=== PATIENT | male | born 1940 | race Hispanic/Latino ===

== ENCOUNTER 2016-12-19 12:23 | Emergency (ER) | payer MEDICARE, BC ==
[2016-12-19 12:23] VITALS: BMI 21.7
[2016-12-19 12:46] VITALS: RESP 18
--- NOTE | 2016-12-19 13:04 | ED PDOC ---
Arrival/HPI - General Historian: Patient - General Chief Complaint: Back Pain Time Seen by Provider: 12/19/16 12:30 - History of Present Illness Narrative History of Present Illness (Text): 12/19/16 12:56 76yo male with PMhx of hypertension, hypercholestrol present with complaint of right sided lower back pain that radiates posteriorly to his foot. states pain started over a week ago and became increasingly worse. Pain is crampy and usually with ambulation. States he saw a Chiropractor and was told he have a sciatica. States xray was negative and he was told to f/u in ED. 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 Denies saddle anesthesia, focal weakness, LE edema, trauma, chest pain, SOB, urinary/fecal incontinence. (Ayla Perez A) Past Medical History - Provider Review Nursing Documentation Reviewed: Yes - Infectious Disease Hx of Infectious Diseases: None - Cardiac Hx Hypertension: Yes - Pulmonary Hx Asthma: Yes - Neurological Hx Paralysis: No - HEENT Hx HEENT Disorder: No - Renal Hx Renal Disorder: No - Endocrine/Metabolic Hx Endocrine Disorders: No - Hematological/Oncological Hx Blood Transfusions: No Hx Blood Transfusion Reaction: No - Integumentary Hx Dermatological Disorder: No - Musculoskeletal/Rheumatological Hx Musculoskeletal Disorders: No - Gastrointestinal Hx Gastroesophageal Reflux: Yes - Genitourinary/Gynecological Hx Genitourinary Disorders: No - Psychiatric Hx Substance Use: No - Surgical History Hx Inguinal Hernia Repair: Yes - Anesthesia Hx Anesthesia Reactions: Yes (STATES WITH 2008 COLONOSCOPY-RESP DISTRESS-ICU ADMIT) Hx Malignant Hyperthermia: No - Suicidal Assessment Feels Threatened In Home Enviroment: No Family/Social History - Physician Review Nursing Documentation Reviewed: Yes Family/Social History: Unknown Family HX Smoking Status: Never Smoked Hx Alcohol Use: Yes (WINE DAILY) Hx Substance Use: No Hx Substance Use Treatment: No Allergies/Home Meds Allergies/Adverse Reactions: Allergies No Known Allergies Allergy (Verified 12/19/16 12:46) Home Medications: Home Meds Medication Instructions Recorded Confirmed Atorvastatin [Lipitor] 10 mg PO QAM 04/19/14 11/14/15 Cholecalciferol (Vitamin D3) 5,000 iu PO QAM 04/19/14 11/14/15 [Vitamin D3] Losartan [Cozaar] 50 mg PO QAM 04/19/14 11/14/15 Omeprazole 40 mg PO QAM 11/12/15 11/14/15 Review of Systems - Physician Review All systems were reviewed & negative as marked: Yes - Review of Systems Constitutional: Normal Eyes: Normal ENT: Normal Respiratory: Normal Cardiovascular: Normal Gastrointestinal: Normal Genitourinary Male: Normal Musculoskeletal: Back Pain Skin: Normal Neurological: Normal Endocrine: Normal Hemo/Lymphatic: Normal Psychiatric: Normal Physical Exam Vital Signs Reviewed: Yes Temperature: Afebrile Blood Pressure: Normal Pulse: Regular Respiratory Rate: Normal Appearance: Positive for: Well-Appearing, Non-Toxic, Comfortable Pain Distress: None Mental Status: Positive for: Alert and Oriented X 3 - Systems Exam Head: Present: Atraumatic, Normocephalic Pupils: Present: PERRL Extroacular Muscles: Present: EOMI Conjunctiva: Present: Normal Mouth: Present: Moist Mucous Membranes Neck: Present: Normal Range of Motion Respiratory/Chest: Present: Clear to Auscultation, Good Air Exchange. No: Respiratory Distress, Accessory Muscle Use Cardiovascular: Present: Regular Rate and Rhythm, Normal S1, S2. No: Murmurs Abdomen: Present: Normal Bowel Sounds. No: Tenderness, Distention, Peritoneal Signs Back: No: Midline Tenderness, Paraspinal Tenderness, Pain with Leg Raise Upper Extremity: Present: Normal Inspection. No: Cyanosis, Edema Lower Extremity: Present: Normal Inspection. No: Edema Neurological: Present: GCS=15, CN II-XII Intact, Speech Normal Skin: Present: Warm, Dry, Normal Color. No: Rashes Psychiatric: Present: Alert, Oriented x 3, Normal Insight, Normal Concentration Vital Signs Temp Pulse Resp BP Pulse Ox 12/19/16 14:08 98 F 70 18 131/70 99 12/19/16 12:40 98.1 F 74 18 148/76 98 Medical Decision Making ED Course and Treatment: 12/19/16 13:21 Pt in ED for stated history. He was ambulatory with a normal gait in ED. Neurological intact. PEr US tech - doppler was negative for DVT LS CT pending Pain controlled in ED with Tramadol. 12/19/16 15:[address] IMPRESSION: Asymmetric disc bulge right greater than left at L4-5 with right-sided foraminal stenosis and mild central stenosis Pt continued to ambulate in ED with normal gait. States his pain improved with medication. REsult was DW the pt. Referred to ortho. TRT ED for any new or worsening symptoms. (Chris,Ayla A) I was available for consultation during PA evaluation. The chart was reviewed by me, and I agree with disposition. The documented history was done by the physician capital equipment specialist. The documented physical exam was done by the physician capital equipment specialist. The documented procedures were done by the physician capital equipment specialist. ( Vickey Starr) - RAD Interpretation Radiology Orders: 12/19/16 12:54 LUMBAR SPINE W/O CONTRAST [CT] Stat 12/19/16 12:55 DUPLEX LOWER EXTRM VEIN RIGHT [US] Stat - Medication Orders Current Medication Orders: Discontinued Medications Tramadol HCl (Ultram) 50 mg PO STAT STA Stop: 12/19/16 12:57 Last Admin: 12/19/16 13:10 Dose: 50 MG Disposition/Present on Arrival - Present on Arrival Any Indicators Present on Arrival: No History of DVT/PE: No History of Uncontrolled Diabetes: No Urinary Catheter: No History of Decub. Ulcer: No History Surgical Site Infection Following: None - Disposition Have Diagnosis and Disposition been Completed?: Yes Disposition Time: 14:00 Patient Plan: Discharge - Disposition Diagnosis: Back pain, Sciatica Disposition: HOME/ ROUTINE Condition: STABLE Discharge Instructions (ExitCare): Back Pain (ED), Sciatica (ED) Additional Instructions: Follow up with your doctor/Orthopedist Return to ED ED for any new or worsening Prescriptions: traMADol [Ultram] 50 mg PO TID #10 tab Referrals: Dwayne Morales MD [Primary Care Provider] - Follow up with primary Maulik Herrera III, MD [Medical Doctor] - Follow up with primary
--- NOTE | 2016-12-19 13:55 | CT ---
PROCEDURE: CT Lumbar Spine without contrast HISTORY: back pain COMPARISON: None. TECHNIQUE: Axial computed tomography images were obtained of the lumbar spine without the use of intravenous contrast. Coronal and sagittal reformatted images were created and reviewed. Radiation dose: Total exam DLP = 601 mGy-cm. This CT exam was performed using one or more of the following dose reduction techniques: Automated exposure control, adjustment of the mA and/or kV according to patient size, and/or use of iterative reconstruction technique. FINDINGS: VERTEBRAE: Unremarkable. No fracture. Normal alignment. DISCS/SPINAL CANAL/NEURAL FORAMINA: L1-2: Disc bulge with left-sided osteophyte. Loss of disc height L2-3: Unremarkable. L3-4: Unremarkable. L4-5: There is an asymmetric disc bulge to the right which produces foraminal stenosis. There is also a mild degree of central stenosis. There is disc degeneration with a vacuum disc centrally. There is moderate facet arthropathy L5-S1: Unremarkable. PARASPINAL SOFT TISSUES: Unremarkable. OTHER FINDINGS: None. IMPRESSION: Asymmetric disc bulge right greater than left at L4-5 with right-sided foraminal stenosis and mild central stenosis
[2016-12-19 14:09] VITALS: BP 131/70; PULSE 70; TEMP 98; O2SAT 99
--- NOTE | 2016-12-20 14:22 | US ---
PROCEDURE: Right lower extremity venous US HISTORY: Leg pain and swelling. Evaluate for DVT. PHYSICIAN(S): Ronald Morales M.D. TECHNIQUE: Duplex sonography and color-flow Doppler with graded compression were used to evaluate the deep venous system of the right lower extremity. FINDINGS: The visualized deep venous system of the right lower extremity is sonographically normal and compressible. Normal waveforms and augmentation are seen. There is no sonographic evidence for deep venous thrombosis in the visualized segments of the right lower extremity. IMPRESSION: 1. No sonographic evidence for deep venous thrombosis in the visualized segments of the right lower extremity.
== END 2016-12-19 14:09 | disposition home or self-care (01) ==
LOC: ED 12:23
DX: M54.40 Lumbago with sciatica, unspecified side (principal); I10 Essential (primary) hypertension; E78.00 Pure hypercholesterolemia, unspecified

== ENCOUNTER 2018-10-10 07:32 | Inpatient (IN) | payer MEDICARE, BC ==
[2018-10-10 08:22] LABS: BASO # 0.02 K/mm3 (0.0-2.0); BASO % 0.3 % (0.0-3.0); EOS % 0.4 % (1.5-5.0); HEMOGLOBIN 12.4 g/dL (14.0-18.0); LYMPH # 1.8 (1.2-3.4); LYMPH % 25.8 % (22.0-35.0); MEAN CELL VOLUME 92.5 fl (80.0-105.0); MEAN CORPUSCULAR HEMOGLOBIN 29.9 pg (25.0-35.0); MEAN CORPUSCULAR HGB CONC 32.3 g/dl (31.0-37.0); MEAN PLATELET VOLUME 10.9 fl (7.0-11.0); MONO # 0.7 (0.1-0.6); MONO % 10.3 % (1.0-6.0); RBC 4.15 10^6/uL (3.5-6.1); RED CELL DISTRIBUTION WIDTH 13.4 % (11.5-14.5)
--- NOTE | 2018-10-10 08:28 | ED PDOC ---
Arrival/HPI - General Chief Complaint: Lower Extremity Problem/Injury Time Seen by Provider: 10/10/18 07:39 Historian: Patient - History of Present Illness Narrative History of Present Illness (Text): 10/10/18 08:11 77 year old male, with past medical history of asthma, hypertension, prostrate CA and GERD, presents to the ED accompanied by family for evaluation of progressively worsening bilateral lower extremity swelling since past week. Patient denies any other associated somatic complaints. Patient denies any fevers, chills, headache, dizziness, chest pain, shortness of breath, dyspnea on exertion, cough, abdominal pain, nausea, vomiting, diarrhea, back pain, neck pain, or any other complaints. Patient denies taking his home medications this morning. Patient reports following up with Dr. Sheth for prostrate CA. Time/Duration: < week Symptom Onset: Gradual Symptom Course: Unchanged Activities at Onset: Light Context: Home Past Medical History - Provider Review Nursing Documentation Reviewed: Yes - Infectious Disease Hx of Infectious Diseases: None - Cardiac Hx Hypertension: Yes - Pulmonary Hx Asthma: Yes - Neurological Hx Paralysis: No - HEENT Hx HEENT Disorder: No - Renal Hx Renal Disorder: No - Endocrine/Metabolic Hx Endocrine Disorders: No - Hematological/Oncological Hx Blood Transfusions: No Hx Blood Transfusion Reaction: No - Integumentary Hx Dermatological Disorder: No - Musculoskeletal/Rheumatological Hx Musculoskeletal Disorders: No - Gastrointestinal Hx Gastroesophageal Reflux: Yes - Genitourinary/Gynecological Hx Genitourinary Disorders: No - Psychiatric Hx Emotional Abuse: No Hx Physical Abuse: No Hx Substance Use: No - Surgical History Hx Inguinal Hernia Repair: Yes - Anesthesia Hx Anesthesia: Yes Hx Anesthesia Reactions: Yes (STATES WITH 2008 COLONOSCOPY-RESP DISTRESS-ICU ADMIT) Hx Malignant Hyperthermia: No - Suicidal Assessment Feels Threatened In Home Enviroment: No Family/Social History - Physician Review Nursing Documentation Reviewed: Yes Family/Social History: No Known Family HX Smoking Status: Never Smoked Hx Alcohol Use: Yes (WINE DAILY) Hx Substance Use: No Hx Substance Use Treatment: No Allergies/Home Meds Allergies/Adverse Reactions: Allergies No Known Allergies Allergy (Verified 12/19/16 12:46) Home Medications: Home Meds Medication Instructions Recorded Confirmed Atorvastatin [Lipitor] 10 mg PO QAM 04/19/14 10/10/18 Cholecalciferol (Vitamin D3) 5,000 iu PO QAM 04/19/14 10/10/18 [Vitamin D3] Losartan [Cozaar] 100 mg PO QAM 04/19/14 10/10/18 Fluticasone/Vilanterol 100/25 1 puff INH DAILY 10/10/18 10/10/18 [Breo Ellipta 100-25 MCG INH] Ranitidine HCl [Zantac] 150 mg PO QAM 10/10/18 10/10/18 Tiotropium [place] [Spiriva 2 puff IH DAILY 10/10/18 10/10/18 Respimat] Review of Systems - Physician Review All systems were reviewed & negative as marked: Yes - Review of Systems Constitutional: absent: Fevers Respiratory: absent: SOB, Cough Cardiovascular: Edema (Lower extremity swelling). absent: Chest Pain, [place] Gastrointestinal: absent: Abdominal Pain, Diarrhea, Nausea, Vomiting Genitourinary Male: absent: Dysuria, Urinary Output Changes Musculoskeletal: absent: Back Pain, Neck Pain Skin: absent: Rash Neurological: absent: Headache, Dizziness Physical Exam Vital Signs Reviewed: Yes Vital Signs Temp Pulse Resp BP Pulse Ox 10/10/18 07:32 98.1 F 46 L 20 197/72 H 100 Temperature: Afebrile Blood Pressure: Hypertensive Pulse: Bradycardic Respiratory Rate: Normal Appearance: Positive for: Non-Toxic, Comfortable, Other (thin appearing) Pain Distress: None Mental Status: Positive for: Alert and Oriented X 3 - Systems Exam Head: Present: Atraumatic, Normocephalic Pupils: Present: PERRL Extroacular Muscles: Present: EOMI Conjunctiva: Present: Normal Respiratory/Chest: Present: Clear to Auscultation, Decreased Breath Sounds (Decreased air entry to bilateral lower lung bases). No: Respiratory Distress, Accessory Muscle Use Cardiovascular: Present: Regular Rate and Rhythm, Normal S1, S2. No: Murmurs Abdomen: No: Tenderness, Distention, Peritoneal Signs Back: Present: Normal Inspection Upper Extremity: Present: Normal Inspection. No: Cyanosis, Edema Lower Extremity: Present: Edema (2+ pitting edema bilaterally) Neurological: Present: GCS=15, CN II-XII Intact, Speech Normal Skin: Present: Warm, Dry, Normal Color. No: Rashes Psychiatric: Present: Alert, Oriented x 3, Normal Insight, Normal Concentration Medical Decision Making ED Course and Treatment: 10/10/18 08:11 Impression: 77 year old male presents to the ED for evaluation of bilateral lower extremity swelling. Plan: -- EKG -- Labs -- Chest X-ray -- Urinalysis -- US of LE -- Reassess and disposition Prior Visits: Notes and results from previous visits were reviewed. Progress Notes: 10/10/18 08:11 EKG reviewed, shows junctional rhythm at 42 bpm. 10/10/18 08:50 Chest X-ray reviewed by radiologist, shows borderline left pleural effusion. 10/10/18 10:[address] Mccord, who is aware and agrees with ED management plan, accepts patient under his service. - RAD Interpretation Radiology Orders: 10/10/18 08:11 DUPLEX LOWER EXTRM VEIN BILAT [US] Stat 10/10/18 08:12 CHEST PORTABLE [RAD] Stat Ship'S Cook: Radiologist - EKG Interpretation Interpreted by ED Physician: Yes Type: 12 lead EKG - Scribe Statement The provider has reviewed the documentation as recorded by the Scribe Jj Diaz. All medical record entries made by the Scribe were at my direction and personally dictated by me. I have reviewed the chart and agree that the record accurately reflects my personal performance of the history, physical exam, medical decision making, and the department course for this patient. I have also personally directed, reviewed, and agree with the discharge instructions and disposition. Disposition/Present on Arrival - Present on Arrival Any Indicators Present on Arrival: No History of DVT/PE: No History of Uncontrolled Diabetes: No Urinary Catheter: No History of Decub. Ulcer: No History Surgical Site Infection Following: None - Disposition Have Diagnosis and Disposition been Completed?: Yes Diagnosis: New onset of congestive heart failure Disposition: HOSPITALIZED Disposition Time: 09:40 Condition: FAIR
[2018-10-10 08:33] LABS: ALB/GLOB RATIO 1.3 (1.1-1.8); ALT/SGPT 43 U/L (7-56); AST/SGOT 40 U/L (17-59); BLOOD UREA NITROGEN 23 mg/dL (7-21); CALCIUM 9.3 mg/dL (8.4-10.5); GFR NON-AFRICAN AMERICAN > 60
[2018-10-10 08:45] LABS: B-TYPE NATRIURETIC PEPTIDE 1670 pg/mL (0-450); TROPONIN I 0.02 ng/mL
--- NOTE | 2018-10-10 08:45 | RAD ---
Date of service: 10/10/2018 HISTORY: r/o CHF COMPARISON: Chest radiographs 02/28/2018. FINDINGS: LUNGS: No active pulmonary disease. PLEURA: Borderline left pleural effusion. None is appreciated at the right. No pneumothorax bilaterally. CARDIOVASCULAR: Calcific atherosclerotic changes are seen related to the thoracic aorta. Normal cardiac size. No pulmonary vascular congestion. OSSEOUS STRUCTURES: No significant abnormalities. VISUALIZED UPPER ABDOMEN: Normal. OTHER FINDINGS: None. IMPRESSION: Borderline left pleural effusion. Remainder of the examination appears unremarkable and stable in the interval.
--- NOTE | 2018-10-10 11:43 | CARD ---
APPROVED REPORT Date of service: 10/10/2018 EKG Measurement Heart [id number] <Conclusion> Junctional bradycardia Inferior infarct, age undetermined Marked ST abnormality, possible anterior subendocardial injury Somatic Tremors.
[2018-10-10 12:51] LABS: PH,URINE 6.5 (4.7-8.0); URINE BILIRUBIN NEGATIVE (NEGATIVE); URINE BLOOD NEGATIVE (NEGATIVE); URINE GLUCOSE (UA) NEGATIVE (NEGATIVE); URINE LEUKOCYTE ESTERASE NEGATIVE Leu/uL (NEGATIVE); URINE PROTEIN NEGATIVE mg/dL (<30 mg/dL); URINE UROBILINOGEN 0.2 E.U./dL (<1 E.U./dL)
[2018-10-10 12:52] LABS: URINE APPEARANCE CLEAR (CLEAR); URINE COLOR YELLOW (YELLOW)
--- NOTE | 2018-10-10 13:15 | CON ---
DATE: 10/10/2018 CARDIOLOGY CONSULTATION HISTORY: The patient is a 77-year-old male with a history of prostate CA who presents with pedal edema. PAST MEDICAL HISTORY: The patient's past medical history includes hypertension as well as hypercholesterolemia. He denies previous cardiac history. Denies diabetes mellitus. SOCIAL HISTORY: The patient is a former smoker, stopped 40 years ago. REVIEW OF SYSTEMS: A 14-point review of systems was reviewed in detail. No dyspnea noted. Positive edema in the lower extremities. No angina. No dizziness. No loss of consciousness. Negative history of peptic ulcer disease. No epigastric discomfort. PHYSICAL EXAMINATION: VITAL SIGNS: Blood pressure is 197/72, the heart rates in the 40s, appears to be sinus bradycardia. NECK: Negative JVD. LUNGS: Without rales. HEART: Reveals S1, S2. EXTREMITIES: 1+ edema. LABORATORY DATA: EKG shows poor baseline tracing with bradycardia and narrow complex noted. Hemoglobin is 12.4. Chemistries, BUN and creatinine are unremarkable. Troponin is negative. ProBNP is 1670. IMPRESSION: 1. Bradycardia which appeared to be sinus rhythm. 2. Mild right-sided congestive heart failure. 3. Hypertension. 4. Hypercholesterolemia. 5. History of prostate cancer. Given these findings, we will need to monitor the patient's heart rate on telemetry. Lasix will be ordered. Echocardiogram to evaluate his LV function and to rule out pulmonary hypertension would be appropriate. Ronald España MD
[2018-10-10 14:56] VITALS: BMI 23.0
[2018-10-10] MEDS ORDERED: Influenza Vaccine 60 mcg/0.5 mL SYR (4YR UP) IM ONE (14:57)
[2018-10-10] MEDS ORDERED: Pneumococcal 23-Valent Vaccine IM ONE (14:57)
--- NOTE | 2018-10-10 15:15 | CARD ---
APPROVED REPORT Date of service: 10/10/2018 EXAM: Two-dimensional and M-mode echocardiogram with Doppler and color Doppler. INDICATION Congestive Heart Failure 2D DIMENSIONS Left Atrium (2D)3.9 (1.6-4.0cm)IVSd1.3 (0.7-1.1cm) LVDd4.5 (3.9-5.9cm)PWd1.1 (0.7-1.1cm) LVDs3.2 (2.5-4.0cm)FS (%) 28.3 % LVEF (%)54.7 (>50%) M-Mode DIMENSIONS Aortic Root3.40 (2.2-3.7cm)Aortic Cusp Exc.1.70 (1.5-2.0cm) Aortic Valve AoV Peak Xftoiguf349.0cm/Yasmin Peak GR.11mmHg Mitral Valve E/A ratio0.0 TDI E/Lateral E'0.0E/Medial E'0.0 Tricuspid Valve TR Peak [id number] [id number] Peak Gr.46mmHg [id number] LEFT VENTRICLE The left ventricle is normal size. There is mild concentric left ventricular hypertrophy. The left ventricular function is normal. The left ventricular ejection fraction is within the normal range. There is normal LV segmental wall motion. No left ventricle thrombus noted on this study. RIGHT VENTRICLE The right ventricle is borderline dilated. There is normal right ventricular wall thickness. The right ventricular systolic function is normal. ATRIA The left atrium is borderline dilated. The right atrium is mildly dilated. AORTIC VALVE The aortic valve is severely thickened. There is mild aortic regurgitation. There is no aortic valvular stenosis. MITRAL VALVE The mitral valve is moderately thickened. Mitral regurgitation is moderate to severe. There is no mitral valve stenosis. TRICUSPID VALVE There is moderate tricuspid regurgitation. There is moderate to severe pulmonary hypertension. PULMONIC VALVE There is mild pulmonic valvular regurgitation. GREAT VESSELS The aortic root is normal in size. PERICARDIAL EFFUSION There is no pericardial effusion. <Conclusion> There is mild concentric left ventricular hypertrophy. The left ventricular function is normal. The left ventricular ejection fraction is within the normal range. There is normal LV segmental wall motion. There is mild aortic regurgitation. Mitral regurgitation is moderate to severe. There is moderate tricuspid regurgitation. There is moderate to severe pulmonary hypertension. There is mild pulmonic valvular regurgitation.
--- NOTE | 2018-10-10 20:17 | US ---
HISTORY: Leg pain and swelling. Evaluate for DVT PHYSICIAN(S): Ronald Morales MD. TECHNIQUE: Duplex sonography and color-flow Doppler with graded compression were used to evaluate the deep venous systems of both lower extremities. FINDINGS: The visualized deep venous systems of both lower extremities are sonographically normal and compressible. Normal wave forms and augmentation are seen. There is no sonographic evidence for deep venous thrombosis in the visualized segments of both lower extremities. IMPRESSION: No sonographic evidence for deep venous thrombosis in the visualized segments of both lower extremities.
--- NOTE | 2018-10-10 21:11 | HP ---
DATE OF EXAM: 10/10/2018 HISTORY OF PRESENT ILLNESS: I saw him in the emergency room. He is a very nice 77-year-old white man who presents with shortness of breath, bilateral lower extremity swelling since last week. No somatic complaints, just short of breath. No real chest pain. He has a past medical history of asthma, hypertension, prostate cancer, gastroesophageal reflux disease. He has had a hernia repair in the past. He has had colonoscopy and respiratory distress in the ICU admit after anesthesia. ALLERGIES: NO KNOWN DRUG ALLERGIES. MEDICATIONS: On Lipitor, vitamin D3, Cozaar, omeprazole. He has stopped taking the omeprazole and the tramadol and vitamin D3. Lipitor on Cozaar 50 mg. FAMILY HISTORY: No known family history. SOCIAL HISTORY: No smoker. Daily wine. No substance abuse. REVIEW OF SYSTEMS: No acute vision or hearing changes. No fevers. There is shortness of breath. There is lower extremity edema. No chest pain. No palpitations. No problems urinating. No back pain or neck pain. No rashes that he knows of. No headache or dizziness. PHYSICAL EXAMINATION: GENERAL: He is comfortable in bed, nontoxic appearing at rest. Alert and oriented x3. VITAL SIGNS: He has a temperature 99.1, pulse 46, his pulse has also been in the 40s since he has been here. Respiratory rate 21, blood pressure 97/72. I will put him back on his Cozaar and 100% O2 sat. HEENT: Head is atraumatic, normocephalic. Extraocular muscles are intact. Pupils are equal, reactive to light. Throat is moist. NECK: Supple. CARDIOPULMONARY: Regular rate. Normal S1, S2. LUNGS: Decreased breath sounds. Fair effort. No wheezes, rhonchi or rales. ABDOMEN: Soft, nontender. Positive bowel sounds. EXTREMITIES: +1 and +2 pitting edema in bilateral lower extremities. NEUROLOGIC: GCS is 15. Cranial nerves II through XII grossly intact. Speech is normal. SKIN: Warm and dry. Alert and oriented x3. LYMPHS: Thyroid midline. No palpable appreciable lymphadenopathy. LABORATORY DATA: He had some tests done. Chest x-ray showed an EKG was inferior infarct age undetermined, marked ST abnormality, possible anterior subendocardial injury, somatic tremors. Chest x-ray showed for a left lower effusion and the remainder of the exam appears unremarkable. He has some blood tests done. Urine is clean. He has a sodium 137, potassium 4.8, BUN 22, creatinine 0.9, GFR is greater than 60, sugar is 92, calcium 2.3, magnesium 2.1, total bili is 0.9, AST is 40, ALT is 42, alk phos 53. Lactate dehydrogenase is 579 and total creatine kinase 148. Troponin I 0.02. BNP is high as 1670, total protein 7.1. White count 7, hemoglobin 12.4, hematocrit 30.4, platelets of 154. IMPRESSION AND PLAN: He will be placed on Lasix 40 mg IV daily. He will have a consult with Pulmonology. He will be back on his Cozaar, blood pressure down. We will check his labs tomorrow. Hopefully, he will be diuresed. We will order physical therapy and out of bed to chair, and hopefully he will improve. He might need subacute rehab. He was thin, frail and weak. We will see how that progresses and hopefully he will diurese well and as per Cardiology. Cory Mccord DO MTDD
[2018-10-11 06:31] LABS: HEMOGLOBIN 12.7 g/dL (14.0-18.0); MEAN CELL VOLUME 92.5 fl (80.0-105.0); MEAN CORPUSCULAR HEMOGLOBIN 29.9 pg (25.0-35.0); MEAN CORPUSCULAR HGB CONC 32.3 g/dl (31.0-37.0); MEAN PLATELET VOLUME 10.9 fl (7.0-11.0); RBC 4.25 10^6/uL (3.5-6.1); RED CELL DISTRIBUTION WIDTH 13.4 % (11.5-14.5); WHITE BLOOD COUNT 6.8 10^3/uL (4.5-11.0)
[2018-10-11 07:05] LABS: ALB/GLOB RATIO 1.3 (1.1-1.8); ALBUMIN 3.8 g/dL (3.0-4.8); ALT/SGPT 36 U/L (7-56); AST/SGOT 39 U/L (17-59); BLOOD UREA NITROGEN 21 mg/dL (7-21); CALCIUM 9.6 mg/dL (8.4-10.5); GFR NON-AFRICAN AMERICAN > 60
--- NOTE | 2018-10-11 12:47 | CP.PCM.PCO ---
Physician Communication Note - Physician Communication Note Physician Communication Note: For PM insertion 10/12 3:[address] Pina
--- NOTE | 2018-10-11 13:28 | PN ---
DATE: 10/11/2018 SUBJECTIVE: He is resting comfortably in bed. He said he wants to go home. He is not ready to go home. He is on Catapres. He is on Cozaar, Lasix IV, Lipitor. PHYSICAL EXAMINATION VITAL SIGNS: He has a 97.4 temperature; 39 pulse, 31 pulse, 33 pulses, his pulse has been very low, he might need a pacemaker; he has 174/78 blood pressure on lots of blood pressure medication, 20 respiratory rate and 99% O2 sat on room air. HEENT: Head is atraumatic and normocephalic. HEART. Saleem, regular. LUNGS: Decreased breath sounds, but clear. ABDOMEN: Soft. EXTREMITIES: No more edema. The legs edema, which is great. LABORATORY DATA: He has a 6.8 white count, 12.7 hemoglobin, 39.3 hematocrit with 166 platelets. A 136 sodium, potassium 4.2, BUN 21, creatinine 0.9, GFR is greater than 60, sugar is 98, calcium is 9.6, total bili is 1.1, AST is 39, ALT 36, alk phos is 60 and total protein 6.8. Troponin I was 0.02 and BNP was high at 1670. He is being seen by Dr. España. He is adjusting his medication. I am worried that he might need a pacemaker. I will discuss that with Dr. España today. He needs physical therapy to see him, to chair. He looks very weak and thin and frail. I have to make sure he could walk, he might need TCU or [facility]. Ronald Dalal, who is here for CHF, bradycardia, hypertension and high cholesterol picture. Cory Mccord DO MTDEmily
--- NOTE | 2018-10-11 13:55 | PN ---
DATE: 10/11/2018 SUBJECTIVE: The patient is comfortable in bed without shortness of breath. PHYSICAL EXAMINATION: VITAL SIGNS: Blood pressure is 174/78, heart rate remains in the low 30s, atrial flutter, without symptoms at rest. NECK: Negative JVD. LUNGS: Without rales. HEART: S1, S2. EXTREMITIES: Decreased edema. LABORATORY DATA: Hemoglobin is 12.7. Chemistries, BUN and creatinine are unremarkable. Echocardiogram reveals normal EF of 55%. There is [id number] pulmonary hypertension. IMPRESSION: 1. Atrial flutter with marked bradycardia. 2. Accelerated hypertension treated with clonidine. 3. Marked bradycardia with atrial flutter. 4. Pedal edema which is better. PLAN: Given these findings, I have increased his losartan to 100 mg daily. I have discussed with the patient about the need for pacemaker placement. The patient is agreeable. We will proceed to pacemaker placement in the morning. Ronald España MD
[2018-10-11 14:10] LABS: INR 1.19; PROTHROMBIN TIME 13.2 SECONDS (9.4-12.5)
[2018-10-12 06:42] LABS: HEMOGLOBIN 12.9 g/dL (14.0-18.0); MEAN CELL VOLUME 90.6 fl (80.0-105.0); MEAN CORPUSCULAR HEMOGLOBIN 29.7 pg (25.0-35.0); MEAN CORPUSCULAR HGB CONC 32.7 g/dl (31.0-37.0); MEAN PLATELET VOLUME 10.9 fl (7.0-11.0); RBC 4.35 10^6/uL (3.5-6.1); RED CELL DISTRIBUTION WIDTH 12.9 % (11.5-14.5); WHITE BLOOD COUNT 7.4 10^3/uL (4.5-11.0)
[2018-10-12 06:46] LABS: ALB/GLOB RATIO 1.2 (1.1-1.8); ALBUMIN 3.9 g/dL (3.0-4.8); ALT/SGPT 32 U/L (7-56); AST/SGOT 36 U/L (17-59); BLOOD UREA NITROGEN 21 mg/dL (7-21); CALCIUM 9.4 mg/dL (8.4-10.5); GFR NON-AFRICAN AMERICAN > 60
--- NOTE | 2018-10-12 13:53 | PN ---
DATE: 10/12/2018 SUBJECTIVE: The patient is comfortable in bed. PHYSICAL EXAMINATION: VITAL SIGNS: Blood pressure 182/76, heart rate is in the 40s, atrial flutter. NECK: Negative JVD. LUNGS: Without rales. HEART: S1, S2. EXTREMITIES: Without edema. LABORATORY DATA: Hemoglobin is 12.9. Chemistries, BUN and creatinine are unremarkable. INR is 1.19. IMPRESSION: 1. Marked bradycardia. 2. Atrial flutter. 3. Hypertension. 4. Pedal edema which is now resolved. PLAN: Given these findings, we will give the patient clonidine today. The patient is scheduled for pacemaker today Ronald España MD
--- NOTE | 2018-10-12 14:23 | PN ---
DATE: 10/12/2018 SUBJECTIVE: I saw him resting comfortably in bed. He is breathing well. He is eating well, but he is not eating this morning because he is going for permanent pacemaker placement. MEDICATIONS: He is on Catapres, Cozaar, Lasix, Lipitor. PHYSICAL EXAMINATION: VITAL SIGNS: Temperature 98, pulse 49, blood pressure 182/76, respiratory rate 18, 96% O2 sat on room air. HEAD: Atraumatic, normocephalic. HEART: Regular rate, in the 40s. ABDOMEN: Soft, nontender. EXTREMITIES: No edema. LABORATORY DATA: White count 7.4, hemoglobin 12.9, hematocrit 39.4, platelets 177 . He has 134 sodium, potassium 3.8, BUN 21, creatinine 0.8. GFR is greater than 60, sugar is 109, calcium is 9.4, total bili is 1.2, AST is 36, ALT is 32, alk phos is 63. BNP was high at 1670. ASSESSMENT AND PLAN: He was diuresed well and total protein is 7. He is being seen by Cardiology. He is going to have a permanent pacemaker placed today and then we will see how he does after that. I discussed this with his family member, a nurse in [place], and she is the only one that really knows him well and it looks like we are going to try and get him to TCU before he will go home, that would be the plan, that is what is recommended by physical therapy and we will see how he does after the permanent pacemaker. Cory Mccord DO
[2018-10-12] MEDS ORDERED: Phenylephrine 10 mg/ml Inj ONE (15:15)
[2018-10-12] MEDS ORDERED: Midazolam 2 MG/2 ML VIAL ONE (15:42)
[2018-10-12] MEDS ORDERED: Lidocaine 2% Inj (20ml) ONE (16:03)
--- NOTE | 2018-10-12 16:43 | CP.PCM.PCO ---
Physician Communication Note - Physician Communication Note Physician Communication Note: Pt. seen sitting up in chair, no complaints of dizziness, BP elev.for PM
[2018-10-12] MEDS ORDERED: Sodium Chloride 0.9% 1,000 ML IV SCH (17:00)
--- NOTE | 2018-10-12 17:06 | CARD ---
APPROVED REPORT Date of service: 10/12/2018 HISTORY The Patient is a 77 year-old male with a history of SSS, A flutter with Slow VR PROCEDURES Insertion Single Chamber Ventricle Pacemaker INDICATIONS SSS A flutter with slow Ventricular rate CONSCIOUS SEDATION AGENTS Versed Fentanyl IMPLANTED DEVICES Medtronic 5076-52 Active....... Ventricular lead. Medtronic RORO XT SR MRI ... Pulse generator OPERATIVE NOTE The patient was brought to the Cardiac Catheterization Laboratory in a fasting state and was prepped and draped in a sterile manner. The left subclavian region was infiltrated with 2% Lidocaine, subcutaneous anesthesia. A transverse incision was made in the left subclavicular area. The subcutaneous pocket was formed via blunt dissection, Percutaneous venous access was achieved and an introducer sheath was inserted into the Lt Subclavian vein. Through the introducer sheath, the ventricular lead wire was postitioned in the right ventricular apex utilizing fluoroscopic guidance. The ventricular was advanced over the wire under fluoroscopic guidance and positioned in the right ventricle. Capturing and sensing thresholds were verified. THE VENTRICULAR ELECTRODE PARAMETERS R WAVE 4.6 THRESHOLD0.3 RESISTANCE 798 The ventricular lead was then secured using Silk 0. The subcutaneous pocket was irrigated with Betadine. The ventricular lead was attached to the appropriate receptacle on the pulse generator and set screws firmly tightened to insure adequate contact and stability. The lead and pulse generator were placed into the subcutaneous pocket. Sharp and sponge counts were confirmed to be correct. At this time the pocket was closed subcutaneously with a 2.0 Vicryl and the skin was closed with a 4.0 Vicryl .The operative site was dressed in sterile fashion. The patient tolerated the procedure well and was transferred to the floor in stable condition. COMPLICATIONS The patient tolerated the procedure well and there were no complications associated with the procedure. CONCLUSION Successful implantation of Single chamber VVI Roro XT MRI safe from [employer] ( pt can have MRI if needed) CC; Drs. España/ Amirah Mccord
--- NOTE | 2018-10-12 17:35 | CPOSTOP ---
DATE: 10/12/2018 CARDIOVASCULAR LAB POSTPROCEDURE NOTE PHYSICIAN: Radha Pina MD NURSING SERVICE DIRECTOR: IRIS Gallagher TYPE OF ANESTHESIA: Moderate conscious sedation, 1 mg of Versed and 50 of fentanyl given. PRE-PROCEDURE CONDITION: A-flutter with slow ventricular rate. PROCEDURE PERFORMED: Implantation of permanent pacemaker, single chamber VVI. FINDINGS: Single chamber pacemaker VVI implanted. FINAL DIAGNOSIS: Atrial fibrillation with slow rate. POSTPROCEDURE CONDITION: The patient's condition is stable. VASCULAR ACCESS SITE: Left side of the chest, Left subclavian artery. CLOSURE DEVICE: Dermabond applied and pacemaker sutured. TOTAL RADIATION DOSE: 304.8 milligray unit. TOTAL FLUORO TIME: 1.2 minute. Radha Pina MD
[2018-10-12 17:41] VITALS: O2SAT 100
[2018-10-13 06:24] LABS: HEMOGLOBIN 14.3 g/dL (14.0-18.0); MEAN CELL VOLUME 91.5 fl (80.0-105.0); MEAN CORPUSCULAR HEMOGLOBIN 30.2 pg (25.0-35.0); MEAN PLATELET VOLUME 11.1 fl (7.0-11.0); RBC 4.73 10^6/uL (3.5-6.1)
[2018-10-13 07:20] LABS: ALB/GLOB RATIO 1.2 (1.1-1.8); ALBUMIN 4.1 g/dL (3.0-4.8); ALT/SGPT 32 U/L (7-56); AST/SGOT 42 U/L (17-59); BLOOD UREA NITROGEN 26 mg/dL (7-21); CALCIUM 9.6 mg/dL (8.4-10.5); GFR NON-AFRICAN AMERICAN > 60
--- NOTE | 2018-10-13 08:29 | PQF ---
PROVIDER RESPONSE TEXT: As per cardiology REVIEWER QUERY TEXT: CHF Acuity and Type Congestive Heart Failure is documented in the Medical Record. Please document the type and acuity (in cludes probable or suspected) Such as: Type: -- Systolic -- Diastolic -- Combined -- Other, please specify Acuity: -- Acute -- Chronic -- Acute on chronic -- Other, please specify Also please document the underlying cause of the CHF (includes probable or suspected) The patient's Clinical Indicators include: Documentation notes CHF present on admission. Please specify type and acuity. Query created by: Philomena Brown on 10/13/2018 7:38 AM Electronically signed by: Cory Mccord DO 10/13/2018 8:26 AM
--- NOTE | 2018-10-13 08:51 | RAD ---
Date of service: 10/12/2018 HISTORY: Post Pacemaker COMPARISON: 10/10/2018 FINDINGS: LUNGS: Evaluation limited due to oblique positioning. No infiltrate. PLEURA: No significant pleural effusion identified, no pneumothorax apparent. CARDIOVASCULAR: No aortic atherosclerotic calcification present. Normal cardiac size. No congestive change. Permanent pacemaker. OSSEOUS STRUCTURES: No significant abnormalities. VISUALIZED UPPER ABDOMEN: Normal. OTHER FINDINGS: None. IMPRESSION: No active disease.
--- NOTE | 2018-10-13 11:20 | RAD ---
Date of service: 10/13/2018 HISTORY: S/p ppm R/p Pneumothorax COMPARISON: 10/12/2018 at 5:34 p.m. TECHNIQUE: Chest PA and lateral FINDINGS: LUNGS: No active pulmonary disease. PLEURA: Minimal blunting of left costophrenic angle and costophrenic sulcus. Small effusion versus chronic pleural thickening. No right pleural effusion. No pneumothorax. CARDIOVASCULAR: There is atherosclerotic calcification of the thoracic aorta. Normal cardiac size. No pulmonary vascular congestion. OSSEOUS STRUCTURES: Permanent pacemaker noted. VISUALIZED UPPER ABDOMEN: Normal. OTHER FINDINGS: None. IMPRESSION: New permanent pacemaker. No pneumothorax questionable small left pleural effusion.
--- NOTE | 2018-10-13 11:28 | CARD ---
APPROVED REPORT Date of service: 10/12/2018 EKG Measurement Heart [id number] <Conclusion> Electronic ventricular pacemaker
[2018-10-13 16:24] VITALS: BP 116/77; PULSE 60; RESP 18; TEMP 97.7
--- NOTE | 2018-10-13 18:48 | PN ---
DATE: 10/13/2018 SUBJECTIVE: The patient tolerated his pacemaker well. PHYSICAL EXAMINATION: VITAL SIGNS: Stable, heart rate is fully paced at 60. NECK: Negative JVD. LUNGS: Without rales. HEART: S1, S2. EXTREMITIES: Without edema. LABORATORY DATA: Laboratories were reviewed and unremarkable. Chest x-ray shows no pneumothorax. IMPRESSION: 1. Status post pacemaker placement. 2. Atrial flutter with low heart rate. 3. Resolution of congestive heart failure. 4. Weakness. PLAN: Given these findings, we will DC telemetry today. The patient can be transferred to TCU today. Ronald España MD
--- NOTE | 2018-10-14 00:06 | DS ---
HISTORY: I am hoping Ronald Dalal go to the TCU today, he is here for 3 days. He was here with CHF, bradycardia. He had a pacemaker implanted and hopefully he can go for TCU, so he can get stronger before he goes home. MEDICATIONS: He is on clonidine, losartan, Keflex, Lasix, Lipitor. OBJECTIVE: VITAL SIGNS: He has a 97.9 temperature, 90 pulse, 166/91 blood pressure, 20 respiratory rate, 100% O2 sat on room air. HEENT: Head is atraumatic, normocephalic. HEART: Regular rate. LUNGS: Decreased breath sounds, but clear. ABDOMEN: Soft. EXTREMITIES: No more edema. LABORATORY DATA: He has 136 sodium, potassium 4, BUN 26, creatinine 1, GFR is greater than 60, sugar is 99, calcium 9.6, total bili is 1.4, AST is 42, ALT is 32, alk phos 70. His BNP was high at 1670 when he came in with 7.3, total protein. White count is 9, hemoglobin 14.3, hematocrit 40.3, platelets of 171. RECOMMENDATION: Recommendation from physical therapy with the TCU, I am hoping he can go today and hopefully he will do very well with the pacemaker. I will see him tomorrow. Cory Mccord DO
== END 2018-10-13 20:45 | DRG 243 ==
LOC: ED 07:32 → ERH 09:56 → 3RNO 14:22
PROVIDERS: ADMIT Family Medicine; ATTEND Internal Medicine Medical Oncology
PROC: 0JH604Z Insertion of Pacemaker, Single Chamber into Chest Subcutaneous Tissue and Fascia, Open Approach (ICD-10-PCS; principal; 2018-10-12)
PROC: 02HK3JZ Insertion of Pacemaker Lead into Right Ventricle, Percutaneous Approach (ICD-10-PCS; 2018-10-12)
DX: I49.5 Sick sinus syndrome (principal); I48.92 Unspecified atrial flutter; I11.0 Hypertensive heart disease with heart failure; I50.9 Heart failure, unspecified; K21.9 Gastro-esophageal reflux disease without esophagitis; R54 Age-related physical debility; E78.00 Pure hypercholesterolemia, unspecified; J45.909 Unspecified asthma, uncomplicated; Z85.46 Personal history of malignant neoplasm of prostate; Z87.891 Personal history of nicotine dependence

== ENCOUNTER 2018-10-13 20:45 | Inpatient (IN) | payer OTHER, BC ==
[2018-10-14 01:10] VITALS: BMI 22.6
--- NOTE | 2018-10-14 18:15 | CON ---
DATE: 10/14/2018 NEUROLOGY CONSULTATION CHIEF COMPLAINT: Change in mental status. HISTORY OF PRESENT ILLNESS: This is a 77-year-old man with past medical history of hypertension, cognitive impairment, history of prostate CA, hypercholesterolemia, hypertension, who was brought initially to the for having some mild right-sided congestive heart failure, in addition had bradycardia which has status post pacemaker. He was brought to TCU. He was agitated, taken off his clothes, mildly confused. He is definitely in a state of delirium unlike cognitive impairment. His blood pressure was high and his blood pressure meds are being adjusted. Otherwise, follow simple commands. Family talked at bedside. PAST MEDICAL HISTORY: As above. SOCIAL HISTORY: No illicit drug use, smoking, or EtOH abuse. FAMILY HISTORY: Noncontributory. MEDICATIONS: Reviewed by nurse's reconciliation sheet. LABORATORY DATA: Sodium 136, potassium 4, chloride 97, carbon dioxide 33, BUN of 26, creatinine 1, random glucose 99. PHYSICAL EXAMINATION: GENERAL: Patient is up in bed, in no acute distress. He is cachectic looking. VITAL SIGNS: Temperature 98.4, pulse 59, blood pressure 167/95, respiratory rate 20, oxygen saturation 96% on room air. HEENT: Atraumatic, normocephalic. PERRLA. Extraocular muscles intact. NECK: Supple. No JVD. No adenopathy noted. LUNGS: Clear to auscultation. No adventitious sounds. HEART: S1 and S2. Normal rate and rhythm. No murmurs, rubs, or gallops. ABDOMEN: Soft, nontender, and nondistended. Bowel sounds present. EXTREMITIES: No clubbing. No cyanosis. Peripheral pulses are 2+ bilaterally. NEUROLOGIC: Patient is alert, oriented to person, place, and self. Recall after 5 minutes is 2/3. Poor attention span. Slow thought process. Cranial nerves II through XII are intact. Motor examination; moves all extremities. No pronator drift seen. Sensory exam: Decreased light touch, pinprick, proprioception, and decreased vibration to the toes. DTRs are 2+ throughout one toe and both knees and ankles. Coordination: [id number] is intact. No dysmetria noted. Gait is deferred for now. ASSESSMENT: Change in mental status secondary to underlying delirium superimposed likely cognitive impairment. RECOMMENDATIONS: At this time we recommend: 1. Physical and occupational therapy for deconditioned state given that he recently had a pacemaker placed in. 2. Monitor electrolytes and correct accordingly. 3. Keep his blood pressure between 120s to 140s systolic and diastolic to 70s to 80s. 4. We will add Seroquel 12.5 mg p.o. at bedtime for agitation and recommend delirium precautions and needs frequent orientation throughout the day and hygiene. Hugo Ozuna MD
--- NOTE | 2018-10-15 16:38 | PN ---
DATE: 10/15/2018 The patient is 77 years old. The patient is of Dr. Sheth, covering for her. SUBJECTIVE: The patient is 77 years old with history of: 1. Dementia. 2. Hypertension. 3. History of CA of prostate. 4. Hyperlipidemia. 5. Congestive heart failure. He was found to be bradycardic and underwent pacemaker replacement. PHYSICAL EXAMINATION: GENERAL: On examination today, he seems to be awake and alert, able to communicate, ate fair. VITAL SIGNS: He is afebrile. Pulse 60, respirations 20, and blood pressure 92/54. LUNGS: Bilateral fair air flow. No rhonchi or crackle. HEART: S1 and S2 audible. ABDOMEN: Soft and nontender. No rebound and no guarding. He has pacemaker in the left upper chest area and the wound seems to be healing. No erythema or discharge noted. ASSESSMENT AND PLAN: 1. Status post symptomatic bradycardia and pacemaker placement. 2. Congestive heart failure, resolved. 3. Hypertension. 4. Hyperlipidemia. 5. Peptic ulcer disease. 6. History of cancer of prostate. Plan is, currently the patient is on clonidine. He is on losartan. He is on Eliquis. He is on Lasix and atorvastatin. He takes Seroquel at nighttime. I will order for CBC and CMP in the a.m. to monitor his kidney function, electrolyte, and CBC. Abdulkadir Loving MD
[2018-10-15] MEDS: Saliva Substitute 44.3 ML PO SCH (17:37)
[2018-10-16 08:07] LABS: BASO # 0.02 K/mm3 (0.0-2.0); BASO % 0.2 % (0.0-3.0); EOS # 0.1 (0.0-0.7); EOS % 1.4 % (1.5-5.0); HEMOGLOBIN 14.9 g/dL (14.0-18.0); LYMPH # 2.8 (1.2-3.4); LYMPH % 27.3 % (22.0-35.0); MEAN CELL VOLUME 91.6 fl (80.0-105.0); MEAN CORPUSCULAR HEMOGLOBIN 29.7 pg (25.0-35.0); MEAN CORPUSCULAR HGB CONC 32.5 g/dl (31.0-37.0); MEAN PLATELET VOLUME 10.8 fl (7.0-11.0); MONO # 0.8 (0.1-0.6); MONO % 7.7 % (1.0-6.0); RBC 5.01 10^6/uL (3.5-6.1); RED CELL DISTRIBUTION WIDTH 13.4 % (11.5-14.5); WHITE BLOOD COUNT 10.1 10^3/uL (4.5-11.0)
[2018-10-16 08:43] LABS: ALB/GLOB RATIO 1.2 (1.1-1.8); ALBUMIN 4.2 g/dL (3.0-4.8); CALCIUM 9.7 mg/dL (8.4-10.5)
[2018-10-16] MEDS: Dextrose 5%/0.45% NS 1,000 ML IV SCH (15:38)
[2018-10-16] MEDS: Saliva Substitute 44.3 ML PO SCH (17:28)
--- NOTE | 2018-10-16 20:22 | CP.PCM.HP ---
History of Present Illness - History of Present Illness History of Present Illness: Transferred from regular floor for deconditioning. He was admitted with bradycardia, underwent pacemaker placement. Family travelled from [place] today.His cousin and her bedside. He has baseline dementia. Family not aware of dementia. he is able to take care of himself. He keeps his office appointments. H/O prostate cancer on lupron. No chest pain. Present on Admission - Present on Admission Any Indicators Present on Admission: No Review of Systems - Constitutional Constitutional: As Per HPI - EENT Eyes: absent: As Per HPI, Blind Spots, Blurred Vision, Change in Vision, Decreased Night Vision, Diplopia, Discharge, Dry Eye, Exophthalmos, Floaters, Irritation, Itchy Eyes, Loss of Peripheral Vision, Pain, Photophobia, Requires Corrective Lenses, Sees Flashes, Spots in Vision, Tunnel Vision, Other Visual Disturbances, Loss of Vision, Other Ears: absent: As Per HPI, Decreased Hearing, Ear Discharge, Ear Pain, Tinnitus, Abnormal Hearing, Disequilibrium, Dizziness, Other Nose/Mouth/Throat: absent: As Per HPI, Epistaxis, Nasal Congestion, Nasal Discharge, Nasal Obstruction, Nasal Trauma, Nose Pain, Post Nasal Drip, Sinus Pain, Sinus Pressure, Bleeding Gums, Change in Voice, Dental Pain, Dry Mouth, Dysphagia, Halitosis, Hoarsness, Lip Swelling, Mouth Lesions, Mouth Pain, Odynophagia, Sore Throat, Throat Swelling, Tongue Swelling, Facial Pain, Neck Pain, Neck Mass, Other - Cardiovascular Cardiovascular: As Per HPI - Respiratory Respiratory: absent: As Per HPI, Cough, Dyspnea, Hemoptysis, Dyspnea on Exertion , Wheezing, Snoring, Stridor, Pain on Inspiration, Chest Congestion, Excessive Mucous Production, Change in Mucous Color, Pain with Coughing, Other - Gastrointestinal Gastrointestinal: absent: Abdominal Pain, Belching, Bloating, Change in Bowel Habits, Change in Stool Character, Coffee Ground Emesis, Constipation, Cramping, Diarrhea, Dyspepsia, Dysphagia, Early Satiety, Excessive Flatus, Fecal Incontinence, Heartburn, Hematemesis, Hematochezia, Loose Stools, Melena, Nausea, Odynophagia, Temesmus, Vomiting, Other - Genitourinary Genitourinary: As Per HPI - Integumentary Integumentary: absent: As Per HPI, Acne, Alopecia, Bleeding Lesions, Change in Hair, Change in Nails, Change in Pigmentation, Changing Lesions, Dry Skin, Erythema, Furuncle, Hirsutism, Lesions, New Lesions, Non-Healing Lesions, Photosensitivity, Pruritus, Rash, Skin Pain, Skin Ulcer, Sores, Striae, Swellin g, Unusual Bruising, Wounds, Jaundice, Other - Psychiatric Psychiatric: As Per HPI - Endocrine Endocrine: absent: As Per HPI, Change in Body Appearance, Change in Libido, Cold Intolorance, Deepening of Voice, Excessive Sweating, Fatigue, Flushing, Heat Intolorance, Increase in Ring/Shoe/Hat Size, Palpitations, Polydipsia, Polyphagia, Polyuria, Other Past Patient History - Infectious Disease Hx of Infectious Diseases: None - Past Social History Smoking Status: Never Smoked - CARDIAC Hx Congestive Heart Failure: Yes - PULMONARY Hx Asthma: Yes - NEUROLOGICAL Hx Paralysis: No - HEENT Hx HEENT Problems: No - RENAL Hx Chronic Kidney Disease: No - ENDOCRINE/METABOLIC Hx Endocrine Disorders: No - HEMATOLOGICAL/ONCOLOGICAL Hx Blood Transfusions: No Hx Blood Transfusion Reaction: No - INTEGUMENTARY Hx Dermatological Problems: No - MUSCULOSKELETAL/RHEUMATOLOGICAL Hx Falls: No - GASTROINTESTINAL Hx Gastrointestinal Disorders: No - GENITOURINARY/GYNECOLOGICAL Hx Genitourinary Disorders: No Hx Reproductive Disorders: No - PSYCHIATRIC Hx Emotional Abuse: No Hx Physical Abuse: No Hx Substance Use: No - SURGICAL HISTORY Hx Surgeries: Yes - ANESTHESIA Hx Anesthesia: Yes Hx Anesthesia Reactions: Yes (STATES WITH 2008 COLONOSCOPY-RESP DISTRESS-ICU ADMIT) Hx Malignant Hyperthermia: No Meds Allergies/Adverse Reactions: Allergies Allergy/AdvReac Type Severity Reaction Status Date / Time No Known Allergies Allergy Verified 12/19/16 12:46 Physical Exam - Constitutional Appears: Non-toxic - Head Exam Head Exam: ATRAUMATIC, NORMAL INSPECTION, NORMOCEPHALIC - Eye Exam Eye Exam: Normal appearance - ENT Exam ENT Exam: Mucous Membranes Moist, Normal Exam - Respiratory Exam Respiratory Exam: Clear to Auscultation Bilateral, NORMAL BREATHING PATTERN - Cardiovascular Exam Cardiovascular Exam: REGULAR RHYTHM, +S1, +S2 - GI/Abdominal Exam GI & Abdominal Exam: Normal Bowel Sounds, Soft - Extremities Exam Extremities exam: Positive for: normal inspection - Back Exam Back exam: NORMAL INSPECTION - Neurological Exam Neurological exam: Alert, CN II-XII Intact, Oriented x3 - Skin Skin Exam: Normal Color, Warm Results - Vital Signs Recent Vital Signs: Last Vital Signs Temp 98.1 F 10/15/18 16:00 Pulse 60 10/16/18 17:29 Resp 18 10/15/18 16:00 BP 89/52 L 10/16/18 17:29 Pulse Ox 100 10/15/18 16:00 - Labs Result Diagrams: 10/16/18 07:00 10/16/18 07:00 Labs: Laboratory Results - last 24 hr 10/16/18 10/16/18 07:00 07:00 WBC 10.1 RBC 5.01 Hgb 14.9 Hct 45.9 MCV 91.6 MCH 29.7 MCHC 32.5 RDW 13.4 Plt Count 183 MPV 10.8 Neut % (Auto) 63.4 Lymph % (Auto) 27.3 [place] % (Auto) 7.7 H Eos % (Auto) 1.4 L Baso % (Auto) 0.2 Lymph # (Auto) 2.8 [place] # (Auto) 0.8 H Eos # (Auto) 0.1 Baso # (Auto) 0.02 Absolute Neuts (auto) 6.38 Sodium 135 Potassium 3.8 Chloride 94 L Carbon Dioxide 32 Anion Gap 13 BUN 72 H Creatinine 2.2 H Est GFR ( Amer) 35 Est GFR (Non-Af Amer) 29 Random Glucose 103 Calcium 9.7 Total Bilirubin 1.0 AST 58 ALT 27 Alkaline Phosphatase 72 Total Protein 7.8 Albumin 4.2 Globulin 3.5 Albumin/Globulin Ratio 1.2 Assessment & Plan - Assessment and Plan (Free Text) Assessment: 1. Prostate cancer : on lupron q 3 monthly. 2. Bradycardia : s/p pacemaker placement. Consult Dr. España requested. 3. Dementia : neurology consult Dr. Ozuna requested. 4. Ct. PT. family requesting [facility] as he lives alone. He has a friend who helps him. Discussed with the staff Nurse. - Date & Time Date: 10/14/18 Time: 18:00
--- NOTE | 2018-10-16 21:09 | PN ---
DATE: 10/16/2018 SUBJECTIVE: The patient is 77 years old, seen and examined, sitting in a chair. His cousin is by the bedside who brought him cookies. He is eating very eagerly. PHYSICAL EXAMINATION: VITAL SIGNS: He is afebrile, pulse 66, respirations 18, blood pressure 82/53. LUNGS: Bilateral fair air flow. No rhonchi or crackle. HEART: S1 and S2 audible. ABDOMEN: Soft, nontender, no rebound, no guarding. NEUROLOGIC: The patient is awake and alert. Able to communicate. LABORATORY DATA: WBC 10, hemoglobin 14, hematocrit 45, platelets 183. Chemistry: Sodium 135, potassium 3.8, chloride 94, CO2 of 32. BUN 72, creatinine 2.2, blood sugar of 103. ASSESSMENT AND PLAN: 1. Symptomatic bradycardia, status post pacemaker placement. 2. History of carcinoma of the prostate, under care of Dr. Sheth. 3. Dehydration. 4. Chronic anemia. 5. Hypotension, probably secondary to poor oral intake. The plan is , we will hold his oral antihypertensives. Currently, the patient is on clonidine. Will cut down his losartan to 25. He is on Eliquis. I will hold his Lasix also. Give him IV fluids for the next [address] Sheth will follow up with the patient. Abdulkadir Loving MD
[2018-10-17 07:20] LABS: ALB/GLOB RATIO 1.2 (1.1-1.8); CALCIUM 9.4 mg/dL (8.4-10.5)
[2018-10-17] MEDS: Dextrose 5%/0.45% NS 1,000 ML IV SCH ×2 (07:51→22:00)
--- NOTE | 2018-10-17 09:42 | PN ---
DATE: 10/17/2018 SUBJECTIVE: He is disoriented, not oriented to time, place and person. He is saying he is at [facility]. He is talking irrelevantly, saying that services has been paid and people did not deliver the stuff after he gave them the payment. He has history of dementia baseline, but this altered sensorium is new. No fever. No cough with expectoration. REVIEW OF SYSTEM: As per HPI. Rest of 12-point review of systems reviewed negative. PHYSICAL EXAMINATION: GENERAL: Comfortable in bed, in no acute distress. Sensorium altered. Talking irrelevantly. VITAL SIGNS: Heart rate 60 per minute, blood pressure 168/72 and oxygen by nasal cannula. Afebrile. Temperature 98.1. HEENT: No pallor. NECK: No lymphadenopathy. CHEST: Air entry present equal bilateral. No added sounds. CARDIOVASCULAR: S1 and S2 normal. No murmur. No gallop. ABDOMEN: Soft and nontender. No hepatosplenomegaly. EXTREMITIES: No edema. LABORATORY DATA: Sodium 134, potassium 3.6 and creatinine 1.9. White count 10.1, hemoglobin 14.9, hematocrit 45.9 and platelet 183. MEDICATIONS: Eliquis 2.5 mg p.o. b.i.d., Lipitor, Catapres, IV fluid at 60 mL an hour, losartan 25 and Seroquel 12.5 mg at bedtime. ASSESSMENT: 1. Symptomatic bradycardia, status post pacemaker placement. 2. History of prostate cancer, on Lupron. 3. Altered sensorium delirium, this is new. 4. CAT scan of the head stat without contrast. I will get psych consult Dr. Carter requested. Elevated BUN and creatinine. Currently on IV fluid. We will continue IV fluid, oral intake is not very good. PLAN: Plan is for subacute rehab. Stephanie Sheth MD
[2018-10-17] MEDS: Saliva Substitute 44.3 ML PO SCH ×2 (09:55→17:15)
--- NOTE | 2018-10-17 15:56 | PN ---
DATE: 10/17/2018 SUBJECTIVE: The patient is awake, sitting in a chair. OBJECTIVE: VITAL SIGNS: Blood pressure 135/80, heart rates in the 60s, paced rhythm. NECK: Negative JVD. LUNGS: Without rales. HEART: Reveal S1, S2. EXTREMITIES: Without edema. LABORATORY DATA: Hemoglobin is 14.9. Chemistries; BUN and creatinine is 74/1.9 with a glucose of 130. IMPRESSION: 1. Atrial flutter with slow heart rate. 2. Status post pacemaker. 3. Renal insufficiency. 4. Hypertension. Given these findings, the patient is tolerating low-dose Eliquis. The patient is scheduled for discharge in the morning. Ronald España MD
--- NOTE | 2018-10-17 21:15 | CON ---
DATE OF CONSULTATION: 10/17/2018 HISTORY OF PRESENT ILLNESS: In short, the patient is a 77-year-old male with not known previous psychiatric history. The patient has multiple medical issues including asthma, hypertension, prostatic cancer, and GERD. The patient was brought in by family for progressively worsening bilateral lower extremity swelling as well as altered mental status. The patient was admitted on the medical side from 10/10/2018 to 10/13/2018 and was transferred to Transitional Care Unit for further evaluation and stabilization. Psych consult was called for altered mental status. The patient was seen and examined today in Transitional Care Unit. The patient presented to be alert. The patient knows that he is in [facility]. The patient knows what is the month now, but the patient reported that year is 1940. The patient quickly corrects himself after this mortgage loan underwriter's clarification. The patient presented to be withdrawn, but denied feeling depressed and denied hearing voices, denied seeing things, denied paranoid ideation. The patient does not present to be psychotic and mildly confused, but very pleasant. There is patient's cousin, Fernanda Montague, phone number is [phone]. Fernanda reported that she is power of contract attorney. The patient gave permission this mortgage loan underwriter to ask a couple of questions. As per Fernanda, the patient was absolutely fine from the medical and mental standpoint. Last time the patient was at his baseline of mentation was at [facility]. The patient's cousin Fernanda reported that for the past 2 weeks family noticed that the patient is more confused, the patient is sometimes talking nonsense and that is why the family brought the patient for evaluation because the patient presented to be disoriented and confused, which was progressively worsening for the past 2 weeks. Over the weekend as per family, the patient had some visual hallucinations, picking something from the ear and was confused. The patient had alternation of lucid periods as well as with confusion. As per collateral information from the family, at present moment the patient is improving. As per history, the patient does not have history of mental illness, does not have history of dementia, does not have history of suicidal attempts and never been evaluated by psychiatrist. VITAL SIGNS: Reviewed. Pulse is 60, blood pressure 135/80. MEDICATIONS: Reviewed. The patient is on Eliquis, Lipitor, Catapres, dextrose, Cozaar. Seroquel was started by neurology team. The patient got only three doses of the Seroquel. LABORATORY DATA: The patient's labs also reviewed, most recent was from today. BUN and creatinine are somewhat elevated. Microbiology reviewed. MENTAL STATUS EXAM: The patient appears to be alert, mildly confused. The patient knows that he is in the hospital, but was confused in regards of the year. Mood described as okay. Affect was constricted. Thought process seems to be concrete. Thought content, the patient has episodes of confusion and picking something in the ear. Insight and judgment seems to be limited, but improving. Impulses are better controlled. IMPRESSION: This mortgage loan underwriter doubt that the patient has dementia because onset of symptoms started 2 weeks ago, which is related to the medical condition. Most likely, the patient has delirium and normal aging, but the patient needs to have neurological evaluation on the outpatient setting. PLAN: Seroquel will be changed to as-needed after medical stabilization. Most likely, the patient's delirium will be improving. Meanwhile, we will follow up and advise accordingly. As per Dr. Ozuna's note, most likely the patient has delirium, this mortgage loan underwriter shared the same impression, and possible some cognitive impairment, which could be related to normal aging. Should you have any questions, give me a call back. Thank you very much for letting me participate in the care of your patient. Emma Peck MD
[2018-10-18] MEDS: Saliva Substitute 44.3 ML PO SCH ×2 (10:03→17:32)
[2018-10-18 16:27] VITALS: RESP 18
[2018-10-18] MEDS: Dextrose 5%/0.45% NS 1,000 ML IV SCH (17:32)
[2018-10-19] MEDS: Dextrose 5%/0.45% NS 1,000 ML IV SCH (09:44)
[2018-10-19] MEDS: Saliva Substitute 44.3 ML PO SCH ×2 (09:45→17:15)
[2018-10-19 17:11] VITALS: BP 98/58; PULSE 59; TEMP 97.9; O2SAT 100
--- NOTE | 2018-10-19 21:42 | PN ---
DATE: 10/19/2018 SUBJECTIVE: As per report, the patient has episodes of confusion, but overall the patient's mental status is improving. Please see more detailed information from the previous consultation notes by this science writer. The patient is currently on Seroquel at the nighttime 12.5 mg and tolerated medications well. Treatment plan was discussed with the patient power of sports attorney. This science writer was not able to wake the patient up today at afternoon. As per nursing report, the patient was tired from physical therapy. As per report, the patient is not agitated, not aggressive, and not psychotic. Vital signs seems to be stable as per case management. The patient is scheduled for transfer to subacute rehab today. This science writer would recommend for this patient to be seen by psychiatrist within 48-hour window. Seroquel needs to be continued as needed for sundowning and hallucinations. This science writer will sign off. Should you have any questions, give me a call back. Thank you very much. Emma Peck MD [facility]
== END 2018-10-19 18:50 | DRG 310 ==
LOC: TRCU 20:45
PROVIDERS: ADMIT Internal Medicine Medical Oncology; ATTEND Internal Medicine Medical Oncology
PROC: F07Z9FZ Gait Training/Functional Ambulation Treatment using Assistive, Adaptive, Supportive or Protective Equipment (ICD-10-PCS; principal; 2018-10-14)
PROC: F07M6ZZ Therapeutic Exercise Treatment of Musculoskeletal System - Whole Body (ICD-10-PCS; 2018-10-14)
PROC: F08Z2ZZ Grooming/Personal Hygiene Treatment (ICD-10-PCS; 2018-10-14)
PROC: F08Z1ZZ Dressing Techniques Treatment (ICD-10-PCS; 2018-10-14)
PROC: F08Z0ZZ Bathing/Showering Techniques Treatment (ICD-10-PCS; 2018-10-14)
PROC: F08Z4ZZ Home Management Treatment (ICD-10-PCS; 2018-10-14)
DX: R00.1 Bradycardia, unspecified (principal); I48.92 Unspecified atrial flutter; C61 Malignant neoplasm of prostate; D64.9 Anemia, unspecified; E78.00 Pure hypercholesterolemia, unspecified; E78.5 Hyperlipidemia, unspecified; E86.0 Dehydration; F03.90 Unspecified dementia, unspecified severity, without behavioral disturbance, psychotic disturbance, mood disturbance, and anxiety; I11.0 Hypertensive heart disease with heart failure; I50.9 Heart failure, unspecified; J45.909 Unspecified asthma, uncomplicated; K21.9 Gastro-esophageal reflux disease without esophagitis; K27.9 Peptic ulcer, site unspecified, unspecified as acute or chronic, without hemorrhage or perforation; N28.9 Disorder of kidney and ureter, unspecified; Z79.01 Long term (current) use of anticoagulants; Z79.818 Long term (current) use of other agents affecting estrogen receptors and estrogen levels; Z95.0 Presence of cardiac pacemaker; I95.9 Hypotension, unspecified

== ENCOUNTER 2018-10-17 08:40 | Outpatient (CLI) | payer MEDICARE, BC | END 2018-10-17 08:41 | disposition home or self-care (01) | LOC: RAD 08:40 ==

== ENCOUNTER 2018-10-30 12:38 | Inpatient (IN) | payer MEDICARE, BC ==
[2018-10-30 14:37] LABS: BASO # 0.02 K/mm3 (0.0-2.0); BASO % 0.2 % (0.0-3.0); EOS # 0.1 (0.0-0.7); EOS % 0.6 % (1.5-5.0); HEMOGLOBIN 12.5 g/dL (14.0-18.0); LYMPH # 1.6 (1.2-3.4); LYMPH % 14.8 % (22.0-35.0); MEAN CELL VOLUME 91.4 fl (80.0-105.0); MEAN CORPUSCULAR HEMOGLOBIN 29.8 pg (25.0-35.0); MEAN CORPUSCULAR HGB CONC 32.6 g/dl (31.0-37.0); MONO % 9.4 % (1.0-6.0); RBC 4.19 10^6/uL (3.5-6.1); RED CELL DISTRIBUTION WIDTH 13.7 % (11.5-14.5); WHITE BLOOD COUNT 10.7 10^3/uL (4.5-11.0)
[2018-10-30 14:41] LABS: INR 1.02; PROTHROMBIN TIME 11.3 SECONDS (9.4-12.5)
[2018-10-30 14:54] LABS: TROPONIN I 0.05 ng/mL
[2018-10-30 15:00] LABS: URINE BILIRUBIN NEGATIVE (NEGATIVE); URINE BLOOD SMALL (NEGATIVE); URINE GLUCOSE (UA) NEGATIVE (NEGATIVE); URINE LEUKOCYTE ESTERASE TRACE Leu/uL (NEGATIVE); URINE PROTEIN NEGATIVE mg/dL (<30 mg/dL); URINE UROBILINOGEN 0.2 E.U./dL (<1 E.U./dL)
[2018-10-30 15:01] LABS: URINE APPEARANCE CLEAR (CLEAR); URINE COLOR YELLOW (YELLOW)
[2018-10-30 15:06] LABS: URINE BACTERIA FEW /hpf; URINE EPITHELIAL CELLS 0 - 2 /hpf (0-5); URINE WBC 0 - 2 /hpf (0-6)
[2018-10-30 15:07] LABS: ALB/GLOB RATIO 1.1 (1.1-1.8); ALBUMIN 4.1 g/dL (3.0-4.8); CALCIUM 9.6 mg/dL (8.4-10.5)
--- NOTE | 2018-10-30 16:14 | CARD ---
APPROVED REPORT Date of service: 10/30/2018 EKG Measurement Heart [id number] <Conclusion> Poor data quality, interpretation may be adversely affected Electronic ventricular pacemaker
--- NOTE | 2018-10-30 16:15 | RAD ---
Date of service: 10/30/2018 HISTORY: admission COMPARISON: Comparison chest 10/13/2018 FINDINGS: LUNGS: No active pulmonary disease. Minimal bibasilar atelectasis felt be present PLEURA: No significant pleural effusion identified, no pneumothorax apparent. CARDIOVASCULAR: Moderate aortic atherosclerotic calcification present. Cardiomegaly. No change single lead pacemaker/defibrillator no pulmonary vascular congestion. OSSEOUS STRUCTURES: No significant abnormalities. VISUALIZED UPPER ABDOMEN: Normal. OTHER FINDINGS: None. IMPRESSION: Minimal bibasilar atelectasis
[2018-10-30] MEDS ORDERED: ACETAMINOPHEN 650 MG PO PRN (17:24)
--- NOTE | 2018-10-30 18:42 | ED PDOC ---
Arrival/HPI - General Chief Complaint: Lower Extremity Problem/Injury Time Seen by Provider: 10/30/18 12:50 Historian: [facility] - History of Present Illness Narrative History of Present Illness (Text): 10/30/18 19:24 78yo male with pmhx of hypertension, CHF, pacemaker recently referred to ED from [place] for alleged DVT. Patient is a poor historian, lethargic. Not able to say why he is in ED. He admitted to b/l leg pain. Denies chest pain, SOB, nausea, vomiting, diarrhea, cough, fever, chills, any other complaint. Past Medical History - Provider Review Nursing Documentation Reviewed: Yes - Infectious Disease Hx of Infectious Diseases: None - Cardiac Hx Cardiac Disorders: Yes Hx Congestive Heart Failure: Yes Hx Pacemaker: Yes - Pulmonary Hx Respiratory Disorders: Yes Hx Asthma: Yes - Neurological Hx Neurological Disorder: Yes Hx Dementia: Yes - HEENT Hx HEENT Disorder: No - Renal Hx Renal Disorder: No - Endocrine/Metabolic Hx Endocrine Disorders: No - Hematological/Oncological Hx Blood Transfusions: No Hx Blood Transfusion Reaction: No - Integumentary Hx Dermatological Disorder: No - Musculoskeletal/Rheumatological Hx Falls: No - Gastrointestinal Hx Gastrointestinal Disorders: No - Genitourinary/Gynecological Hx Genitourinary Disorders: Yes Hx Prostate Problems: Yes - Psychiatric Hx Substance Use: No - Surgical History Other/Comment: PACEMAKER, COLONOSCOPY - Anesthesia Hx Anesthesia: Yes Hx Anesthesia Reactions: Yes (STATES WITH 2007 COLONOSCOPY-RESP DISTRESS-ICU ADMIT) Hx Malignant Hyperthermia: No - Suicidal Assessment Feels Threatened In Home Enviroment: No Family/Social History - Physician Review Nursing Documentation Reviewed: Yes Family/Social History: Unknown Family HX Smoking Status: Never Smoked Hx Alcohol Use: Yes (WINE DAILY) Hx Substance Use: No Hx Substance Use Treatment: No Allergies/Home Meds Allergies/Adverse Reactions: Allergies No Known Allergies Allergy (Verified 10/30/18 12:46) Home Medications: Home Meds Medication Instructions Recorded Confirmed Acetaminophen [Tylenol] 650 mg PO Q4 PRN 10/30/18 10/30/18 Review of Systems - Physician Review All systems were reviewed & negative as marked: Yes - Review of Systems Constitutional: Normal Eyes: Normal ENT: Normal Respiratory: Normal Cardiovascular: Normal Gastrointestinal: Normal Genitourinary Male: Normal Musculoskeletal: Arthralgias (B/L leg pain) Skin: Normal Neurological: Normal Endocrine: Normal Hemo/Lymphatic: Normal Psychiatric: Normal Physical Exam Vital Signs Reviewed: Yes Vital Signs Temp Pulse Resp BP Pulse Ox 10/30/18 16:17 64 18 178/83 H 100 10/30/18 14:02 60 18 136/95 H 100 10/30/18 12:56 98.5 F 60 18 161/85 H 100 Temperature: Afebrile Blood Pressure: Normal Pulse: Regular Respiratory Rate: Normal Appearance: Positive for: Well-Appearing, Non-Toxic, Comfortable Pain Distress: None Mental Status: Positive for: Alert and Oriented X 3 - Systems Exam Head: Present: Atraumatic, Normocephalic Pupils: Present: PERRL Extroacular Muscles: Present: EOMI Conjunctiva: Present: Normal Mouth: Present: Moist Mucous Membranes Neck: Present: Normal Range of Motion Respiratory/Chest: Present: Clear to Auscultation, Good Air Exchange, Other (Healing surgical scar noted on left upper chest wall. No sign of infection). No: Respiratory Distress, Accessory Muscle Use Cardiovascular: Present: Regular Rate and Rhythm, Normal S1, S2. No: Murmurs Abdomen: Present: Distention, Normal Bowel Sounds. No: Tenderness, Peritoneal Signs, Rebound, Guarding, McBurney's Point Tender, Rovsing's Sign Present Back: Present: Normal Inspection Upper Extremity: Present: Normal Inspection. No: Cyanosis, Edema Lower Extremity: Present: Edema (3+ bipedal), NORMAL PULSES, Normal ROM, Tenderness (B/L lower leg), Neurovascularly Intact. No: CALF TENDERNESS, Justen's Sign Neurological: Present: GCS=15, CN II-XII Intact, Speech Normal Skin: Present: Warm, Dry, Normal Color. No: Rashes Psychiatric: Present: Alert, Oriented x 3, Normal Insight, Normal Concentration Medical Decision Making ED Course and Treatment: 10/30/18 19:31 78yo male referred to ED for alleged DVT. Pt was poor historian and appear lethargic, sleepy on arrival. He however became more AAO x3 while in ED Bladder scan indicated urinary retention 808mc per RN Rogel insertion was ordered and placed. Almost 2,000 urine was noted and Rogel was clamped. when reopened total of 3000mc urine was noted and patient started having gross hematuria. Cause of gross hematuria is not unknown at this time, it could be secondary to hours of retention. Per US tech Doppler was negative for DVT Lab was reviewed and elevated Cr. was noted which is similar to his previous lab EKG Electronic pace @ 60bpm Chest xray IMPRESSION: Minimal bibasilar atelectasis Case was DW Dr. Loving and pt was admitted to her service. Heparin was cancelled secondary to the Doppler result. Dr Loving requested Dr. Mustafa consult and it was placed. - Lab Interpretations Lab Results: PT 11.3 SECONDS (9.4-12.5) 10/30/18 14:17 INR 1.02 10/30/18 14:17 APTT 30.0 Seconds (26.9-38.3) 10/30/18 14:17 Troponin I 0.05 ng/mL D 10/30/18 14:17 Total Bilirubin 1.1 mg/dL (0.2-1.3) 10/30/18 14:17 AST 42 U/L (17-59) 10/30/18 14:17 ALT 39 U/L (7-56) 10/30/18 14:17 Alkaline Phosphatase 75 U/L (38-126) 10/30/18 14:17 Total Protein 7.8 g/dL (5.8-8.3) 10/30/18 14:17 Albumin 4.1 g/dL (3.0-4.8) 10/30/18 14:17 Globulin 3.7 gm/dL 10/30/18 14:17 Albumin/Globulin Ratio 1.1 (1.1-1.8) 10/30/18 14:17 Lipase 160 U/L (23-300) 10/30/18 14:17 Urine Color Yellow (YELLOW) 10/30/18 14:50 Urine Appearance Clear (CLEAR) 10/30/18 14:50 Urine pH 6.0 (4.7-8.0) 10/30/18 14:50 Ur Specific [place] 1.015 (1.005-1.035) 10/30/18 14:50 Urine Protein Negative mg/dL (<30 mg/dL) 10/30/18 14:50 Urine Glucose (UA) Negative mg/dL (NEGATIVE) 10/30/18 14:50 Urine Ketones Negative mg/dL (NEGATIVE) 10/30/18 14:50 Urine Blood Small (NEGATIVE) H 10/30/18 14:50 Urine Nitrate Negative (NEGATIVE) 10/30/18 14:50 Urine Bilirubin Negative (NEGATIVE) 10/30/18 14:50 Urine Urobilinogen 0.2 E.U./dL (<1 E.U./dL) 10/30/18 14:50 Ur Leukocyte Esterase Trace Flor/uL (NEGATIVE) H 10/30/18 14:50 Urine RBC 1 - 3 /hpf (0-2) H 10/30/18 14:50 Urine WBC 0 - 2 /hpf (0-6) 10/30/18 14:50 Ur Epithelial Cells 0 - 2 /hpf (0-5) 10/30/18 14:50 Urine Bacteria Few /hpf (NONE) 10/30/18 14:50 - RAD Interpretation Radiology Orders: 10/30/18 13:40 CHEST PORTABLE [RAD] Stat 10/30/18 16:08 DUPLEX LOWER EXTRM VEIN BILAT [US] Stat - Medication Orders Current Medication Orders: Acetaminophen (Tylenol 325mg Tab) 650 mg PO Q6H PRN PRN Reason: Fever >100.4 F Atorvastatin Calcium (Lipitor) 10 mg PO DIN SAW Losartan Potassium (Cozaar) 100 mg PO DAILY SAW Discontinued Medications Heparin Sodium (Porcine) (Heparin) 5,100 units 80 units/kg (5100 units) IV ONCE ONE; Protocol Stop: 10/30/18 17:26 Non-Formulary Medication (Acetaminophen [Tylenol]) 650 mg PO Q4 PRN PRN Reason: Temperature Disposition/Present on Arrival - Present on Arrival Any Indicators Present on Arrival: No History of DVT/PE: No History of Uncontrolled Diabetes: No Urinary Catheter: No History of Decub. Ulcer: No History Surgical Site Infection Following: None - Disposition Have Diagnosis and Disposition been Completed?: Yes Diagnosis: Renal insufficiency, Urinary retention, Leg pain, Hematuria Disposition: HOSPITALIZED Disposition Time: 17:55 Patient Plan: Admission Condition: STABLE
[2018-10-30 22:51] VITALS: BMI 23.3
--- NOTE | 2018-10-30 23:09 | HP ---
DATE OF EXAM: 10/30/2018 HISTORY OF PRESENT ILLNESS: The patient is an 78-year-old was in [facility] rehab after he had symptomatic bradycardia and he had pacemaker placed. He was getting physical therapy. Yesterday, he was noticed to have leg swelling, so leg Doppler was done and the patient was found to have right leg DVT. We did not have recent BUN and creatinine to start him on Lovenox, so he was transferred to emergency room for further evaluation. Denies any chest pain. No shortness of breath. No fever. No chills. He was also noticed to have urinary retention. There is no history of fever or chills. No nausea or vomiting. His overall intake was fair. PAST MEDICAL HISTORY: Significant for: 1. Dementia. 2. History of hypertension. 3. CA prostate. PAST SURGICAL HISTORY: Significant for recent pacemaker placement because of bradycardia. ALLERGIES: HE IS NOT ALLERGIC TO ANY MEDICATION. MEDICATIONS: In the fpc, he is on statin. He is on losartan 100 mg daily. SOCIAL HISTORY: Denies smoking or drinking. He drinks wine with his dinner almost everyday. REVIEW OF SYSTEMS: Significant for being somewhat confused; otherwise, offer no complaint. PHYSICAL EXAMINATION: VITAL SIGNS: He is afebrile, pulse 64, respirations 18, and blood pressure 136/95. LUNGS: Bilateral fair airflow. No rhonchi or crackle. HEART: S1 and S2 audible. ABDOMEN: Distended with suprapubic slight discomfort. NEUROLOGIC: He is somewhat confused. EXTREMITIES: Bilateral leg +2 edema. LABORATORY DATA: WBC is 10.7, hemoglobin 12.5, hematocrit 38.3, and platelet of 140. Chemistry; sodium 138, potassium 4.9, chloride 105, CO2 of 24, BUN 59, creatinine 2, and blood sugar of 100. LFTs are within normal limits. Urine shows trace leukocyte and WBC 0 to 2. Leg Doppler is pending. X-ray of chest minimal bibasilar atelectasis. ASSESSMENT: 1. Right leg deep vein thrombosis. 2. Urinary retention. 3. Status post symptomatic bradycardia and had pacemaker placed. 4. History of carcinoma of prostate. 5. Deconditioning and difficulty walking. PLAN: The patient will be admitted. We will start him on heparin since his creatinine is 2. We will follow up this patient in a.m. Abdulkadir Loving MD [facility] # [id number]
[2018-10-31 07:23] LABS: BASO # 0.01 K/mm3 (0.0-2.0); BASO % 0.1 % (0.0-3.0); EOS # 0.1 (0.0-0.7); EOS % 1.2 % (1.5-5.0); HEMOGLOBIN 12.7 g/dL (14.0-18.0); LYMPH # 1.4 (1.2-3.4); LYMPH % 13.3 % (22.0-35.0); MEAN CELL VOLUME 90.2 fl (80.0-105.0); MEAN CORPUSCULAR HEMOGLOBIN 29.7 pg (25.0-35.0); MEAN PLATELET VOLUME 9.5 fl (7.0-11.0); MONO # 0.9 (0.1-0.6); MONO % 8.6 % (1.0-6.0); RBC 4.27 10^6/uL (3.5-6.1); RED CELL DISTRIBUTION WIDTH 13.5 % (11.5-14.5); WHITE BLOOD COUNT 10.3 10^3/uL (4.5-11.0)
[2018-10-31 07:37] LABS: ALBUMIN 3.3 g/dL (3.0-4.8); ALT/SGPT 27 U/L (7-56); AST/SGOT 31 U/L (17-59); BLOOD UREA NITROGEN 40 mg/dL (7-21); CALCIUM 9.4 mg/dL (8.4-10.5); GFR NON-AFRICAN AMERICAN 53
[2018-10-31 12:11] LABS: TROPONIN I 0.05 ng/mL
[2018-10-31 16:25] LABS: TROPONIN I 0.04 ng/mL
--- NOTE | 2018-10-31 18:31 | PN ---
DATE: 10/31/2018 SUBJECTIVE: The patient is 78-year-old, seen and examined. He was admitted because of urinary retention and questionable right leg DVT. PHYSICAL EXAMINATION: VITAL SIGNS: He is afebrile. Pulse 64, respiration 18, and blood pressure 150/74. LUNGS: Bilateral fair airflow. No rhonchi or crackle. HEART: S1 and S1, audible. ABDOMEN: Soft and nontender. No rebound. No guarding. NEUROLOGICAL: He is awake, alert, oriented, and able to communicate. Somewhat forgetful. LABORATORY DATA: WBC 10.3, hemoglobin 12.7, hematocrit 38.5, and platelet of 132. Chemistry; sodium 139, potassium 4.3, chloride 105, CO2 of 28, BUN 40, creatinine 1.3, and blood sugar of 87. Urine cultures have no growth. His leg Doppler study, there is no signs or evidence of deep venous thrombosis in lower extremity. ASSESSMENT: 1. Status post urinary retention. 2. Status post hematuria. 3. Hypertension. 4. Mild dementia. 5. Status post pacemaker placement. 6. Hyperlipidemia. PLAN: We will monitor the patient for the next 24 hours and follow up his CBC and CMP, start him on Flomax. We will get Dr. Arnold for evaluation. She will see his urologist who took care of his prostate before. Follow up CBC and CMP in a.m. We will order for AMANDA chaney also. We will reevaluate in a.m. If his kidney function improves and is seen by Dr. Arnold, will be discharged in a.m. back to the residential. Abdulkadir Loving MD
[2018-10-31 23:52] LABS: TROPONIN I 0.04 ng/mL
[2018-11-01 07:48] VITALS: BP 150/80; PULSE 59; RESP 20; TEMP 98.7; O2SAT 100
[2018-11-01 11:04] LABS: BLOOD UREA NITROGEN 28 mg/dL (7-21); CALCIUM 8.7 mg/dL (8.4-10.5); GFR NON-AFRICAN AMERICAN > 60
--- NOTE | 2018-11-01 20:53 | DS ---
HISTORY OF PRESENT ILLNESS: The patient is an 78-year-old, seen and examined, sitting in chair, and seems to be comfortable. He is somewhat confused. Denies any nausea or vomiting. PHYSICAL EXAMINATION: VITAL SIGNS: He is afebrile, pulse 59, respirations 20, and blood pressure 150/80. LUNGS: Bilateral fair airflow. No rhonchi or crackle. HEART: S1 and S2 audible. ABDOMEN: Soft and nontender. No rebound. No guarding. NEUROLOGICAL: He is awake and alert, but confused and disoriented. EXTREMITIES: Bilateral leg, no edema. LABORATORY DATA: WBC 10.3, hemoglobin 12.7, hematocrit 38.5, and platelet 132. PT 11.3 and INR 1.02. Chemistry; sodium 136, potassium 3.6, chloride 102, CO2 of 30, BUN 28, creatinine 1, and blood sugar of 91. LFTs are within normal limits. Urinalysis is unremarkable. Blood cultures are negative. Bilateral leg Doppler unremarkable. No DVT. X-ray of chest minimal bibasilar atelectasis. ASSESSMENT: 1. Status post urinary retention. 2. Status post hematuria. 3. History of cancer prostate. 4. Bradycardia, status post pacemaker placement. PLAN: The patient is clinically stable. He will go back to shelter with Rogel catheter and we will followup the patient in the shelter. Abdulkadir Loving MD
--- NOTE | 2018-11-01 21:39 | CON ---
DATE OF CONSULTATION: 11/01/2018 GENITOURINARY CONSULTATION CHIEF COMPLAINT: Bradycardia, leg swelling, and urinary retention. HISTORY OF PRESENT ILLNESS: This is an 78-year-old male, who was known to me. The patient was in [facility] after he had a pacemaker placed for bradycardia. He was receiving physical therapy. He has noticed to have leg swelling and a Doppler was done, which revealed a deep venous thrombosis. A blood work was done, which revealed an elevated BUN and creatinine. He was then found to have urinary retention and a Rogel catheter was placed. The patient has a history of prostate cancer. He was being followed on active surveillance by me. He was seen by Dr. Sheth of Oncology and started on hormonal therapy. The patient has a history of dementia. However, on recent office visits, he had no voiding complaints. There was no evidence of urinary retention prior to this event. consultation was requested regarding the above. PAST MEDICAL HISTORY: Significant for dementia, hypertension, prostate cancer, bradycardia, recent pacemaker placement. MEDICATIONS: Include Cozaar, Flomax, Lipitor and Tylenol. ALLERGIES: NO KNOWN DRUG ALLERGIES. FAMILY HISTORY: Noncontributory for this event. SOCIAL HISTORY: No smoking or EtOH use. REVIEW OF SYSTEMS: Twelve-point view of systems was obtained. The patient is a poor historian. Positives as per the history of present illness. PHYSICAL EXAMINATION: GENERAL: The patient is awake, alert. He is answering questions, although he does have some dementia. He has been afebrile. VITAL SIGNS: Temperature of 98.7, pulse of 60, BP 150/80, respirations 20. NECK: His neck is supple. There is no adenopathy. CHEST: Exam of the chest reveals normal inspiratory effort. CARDIAC: Exam shows positive S1, S2. There is mild peripheral edema noted. ABDOMEN: Soft, nontender, nondistended. There is no hepatosplenomegaly or costovertebral angle tenderness. GENITOURINARY: Phallus is normal. Rogel catheter in place draining clear colored urine. Scrotum is normal. Testes bilaterally descended, nontender, no masses. Epididymis are normal. LABORATORY DATA: On laboratory exam, WBC count 10.3. Creatinine was 2 on admission, now down to 1 with a GFR greater than 60. Urine culture, no growth. Blood cultures are negative. On radiologic exam, no pertinent urologic studies were done. IMPRESSION AND PLAN: This is an 78-year-old male with a history of prostate cancer, and now with urinary retention. As for the prostate cancer, the patient is being treated by Dr. Sheth. He has been receiving hormonal therapy from her, and reportedly, his prostate cancer is well controlled. As for his urinary retention, plan would be to continue Rogel catheter drainage. I would continue him on Flomax for now and plan on a voiding trial in 2 weeks. This is probably due to acute deconditioning given the recent pacemaker placement and the patient in rehabilitation. The patient can then follow up with me in the office when he is done with his rehab, and we will check his voiding. I would discuss further management of his prostate cancer with Dr. Sheth, as she has been treating him for this. Farhan Arnold MD
== END 2018-11-01 17:39 | DRG 696 ==
LOC: ED 12:38 → ERH 18:40 → OBSVTOIN 20:26 → ERH 10-31 09:51 → 5RSO 10-31 12:09
PROVIDERS: ADMIT Internal Medicine; ATTEND Internal Medicine
DX: R33.9 Retention of urine, unspecified (principal); R31.9 Hematuria, unspecified; I11.0 Hypertensive heart disease with heart failure; F03.90 Unspecified dementia, unspecified severity, without behavioral disturbance, psychotic disturbance, mood disturbance, and anxiety; I50.9 Heart failure, unspecified; E78.5 Hyperlipidemia, unspecified; Z85.46 Personal history of malignant neoplasm of prostate; Z95.0 Presence of cardiac pacemaker

== ENCOUNTER 2018-11-04 00:58 | Emergency (ER) | payer MEDICARE, BC ==
[2018-11-04 01:06] VITALS: BMI 23.5
[2018-11-04 01:16] VITALS: RESP 18; TEMP 98.7
[2018-11-04 02:08] LABS: BASO # 0.02 K/mm3 (0.0-2.0); BASO % 0.2 % (0.0-3.0); EOS # 0.3 (0.0-0.7); EOS % 3.2 % (1.5-5.0); HEMOGLOBIN 11.3 g/dL (14.0-18.0); LYMPH # 2.3 (1.2-3.4); LYMPH % 27.8 % (22.0-35.0); MEAN CELL VOLUME 89.9 fl (80.0-105.0); MEAN CORPUSCULAR HEMOGLOBIN 29.4 pg (25.0-35.0); MEAN CORPUSCULAR HGB CONC 32.7 g/dl (31.0-37.0); MEAN PLATELET VOLUME 9.3 fl (7.0-11.0); MONO # 0.8 (0.1-0.6); MONO % 8.9 % (1.0-6.0); RBC 3.85 10^6/uL (3.5-6.1); RED CELL DISTRIBUTION WIDTH 13.5 % (11.5-14.5); WHITE BLOOD COUNT 8.4 10^3/uL (4.5-11.0)
--- NOTE | 2018-11-04 02:09 | ED PDOC ---
Arrival/HPI - General Chief Complaint: Male Genitourinary Time Seen by Provider: 11/04/18 01:05 Historian: Patient - History of Present Illness Narrative History of Present Illness (Text): 11/04/18 01:05 Ronald Dalal is an 78 year old male, with a past medical history of benign prostatic hyperplasia, prostate cancer, hypertension, CHF, and pacemaker, who presents to the Emergency department from his intermediate for catheter p lacement. Patient did not have urinary output with mason and it was removed earlier today. Patient denies fevers, chills, headache, dizziness, chest pain, shortness of breath, dyspnea on exertion, cough, abdominal pain, nausea, vomiting, diarrhea, back pain, neck pain, or any other complaint. Time/Duration: 4-6 hours Symptom Course: Unchanged Activities at Onset: Light Context: Home Past Medical History - Provider Review Nursing Documentation Reviewed: Yes - Infectious Disease Hx of Infectious Diseases: None - Cardiac Hx Cardiac Disorders: Yes Hx Congestive Heart Failure: Yes Hx Hypertension: Yes Hx Pacemaker: Yes - Pulmonary Hx Respiratory Disorders: Yes Hx Asthma: Yes - Neurological Hx Neurological Disorder: Yes Hx Dementia: Yes - HEENT Hx HEENT Disorder: No - Renal Hx Renal Disorder: No - Endocrine/Metabolic Hx Endocrine Disorders: No - Hematological/Oncological Hx Blood Disorders: Yes (low vitamin d level) Hx Cancer: Yes (prostate) Other/Comment: pt can't remember when he was dx with prostate ca, but does remember he goes every [address] garcias for lupron injections - Integumentary Hx Dermatological Disorder: No - Musculoskeletal/Rheumatological Hx Falls: No - Gastrointestinal Hx Gastrointestinal Disorders: No - Genitourinary/Gynecological Hx Genitourinary Disorders: Yes Hx Prostate Problems: Yes (prostate ca) - Psychiatric Hx Emotional Abuse: No Hx Physical Abuse: No Hx Substance Use: No - Surgical History Other/Comment: PACEMAKER, COLONOSCOPY - Anesthesia Hx Anesthesia: Yes Hx Anesthesia Reactions: Yes (STATES WITH 2008 COLONOSCOPY-RESP DISTRESS-ICU ADMIT) Hx Malignant Hyperthermia: No - Suicidal Assessment Feels Threatened In Home Enviroment: No Family/Social History - Physician Review Nursing Documentation Reviewed: Yes Family/Social History: No Known Family HX Smoking Status: Former Smoker Hx Alcohol Use: Yes (WINE DAILY) Hx Substance Use: No Hx Substance Use Treatment: No Allergies/Home Meds Allergies/Adverse Reactions: Allergies No Known Allergies Allergy (Verified 10/30/18 12:46) Home Medications: Home Meds Medication Instructions Recorded Confirmed RX: Acetaminophen [Tylenol] 650 mg PO Q4 PRN 10/30/18 10/30/18 Review of Systems - Physician Review All systems were reviewed & negative as marked: Yes - Review of Systems Constitutional: absent: Fevers, Night Sweats Respiratory: absent: SOB, Cough Cardiovascular: absent: Chest Pain, [place] Gastrointestinal: absent: Abdominal Pain, Diarrhea, Nausea, Vomiting Genitourinary Male: Urinary Output Changes, Other (mason catheter placement) Musculoskeletal: absent: Back Pain, Neck Pain Neurological: absent: Headache, Dizziness Physical Exam - Physical Exam Narrative Physical Exam (Text): 11/04/18 01:05 Gen: VS reviewed, alert, well developed, well nourished, nontoxic, mild distress. ENT: normal pharynx. Eye: EOMI, PERRL. Neck: no JVD, supple, no adenopathy. CV: regular rate, regular rhythm, no rubs, no murmur, no gallops, S1, S2, pulses equal and strong. Pulm: no distress, clear to auscultation, no wheeze, no rhonchi, breath sounds equal, no rales. Abd: Abdomen distended. Somewhat firm, but non tender. no guarding, no rebound, no rigidity, normal bowel sounds. Ext: no edema. Skin: good color, no rash, no cyanosis. Psych: responds appropriately to questions, normal affect. Neuro: oriented x 3, CN2-12 intact grossly, motor intact, sensation intact. Vital Signs Reviewed: Yes Vital Signs Temp Pulse Resp BP Pulse Ox 11/04/18 01:15 98.7 F 60 18 135/72 98 Temperature: Afebrile Blood Pressure: Normal Pulse: Regular Respiratory Rate: Normal Appearance: Positive for: Well-Appearing, Non-Toxic, Comfortable Pain Distress: None Mental Status: Positive for: Alert and Oriented X 3 Medical Decision Making ED Course and Treatment: 11/04/18 03:14 patient was seen for urine retention, labs ok, UA does not show clear UTI. patient had large urine output, vitals stable. discharge Procedures - Time-Out Type of Procedure: mason catheter placement Correct Patient (with visual ID + MR# on ID Band): Yes Correct Procedure: Yes Correct Site Marked: Yes Physician Name: Leon RN Name: [email or web address] - Additional Procedures Progress: a 20F coude two way catheter was placed by myself. sterile technique maintained, large amount of urine flow observed, yellow is urine. patient tolerated procedure well - Scribe Statement The provider has reviewed the documentation as recorded by the Scribe Jean-Pierre Santoyo All medical record entries made by the Scribe were at my direction and personally dictated by me. I have reviewed the chart and agree that the record accurately reflects my personal performance of the history, physical exam, medical decision making, and the department course for this patient. I have also personally directed, reviewed, and agree with the discharge instructions and disposition. Disposition/Present on Arrival - Present on Arrival Any Indicators Present on Arrival: No History of DVT/PE: No History of Uncontrolled Diabetes: No Urinary Catheter: No History of Decub. Ulcer: No History Surgical Site Infection Following: None - Disposition Have Diagnosis and Disposition been Completed?: Yes Diagnosis: Urine retention Disposition: HOME/ ROUTINE Disposition Time: 03:31 Patient Plan: Discharge Condition: STABLE Discharge Instructions (ExitCare): Urinary Retention Additional Instructions: a 20F coude catheter was placed in the ED [place]. call dr. glez to discuss referral to urologist. it is preferred that the patient see urology within 3 days. Forms: [employer] (Nepali)
[2018-11-04 02:22] LABS: BLOOD UREA NITROGEN 26 mg/dL (7-21); CALCIUM 8.2 mg/dL (8.4-10.5); GFR NON-AFRICAN AMERICAN > 60
[2018-11-04 02:27] LABS: PH,URINE 6.5 (4.7-8.0); URINE BILIRUBIN NEGATIVE (NEGATIVE); URINE BLOOD LARGE (NEGATIVE); URINE GLUCOSE (UA) NEGATIVE (NEGATIVE); URINE LEUKOCYTE ESTERASE NEGATIVE Leu/uL (NEGATIVE); URINE PROTEIN NEGATIVE mg/dL (<30 mg/dL); URINE UROBILINOGEN 0.2 E.U./dL (<1 E.U./dL)
[2018-11-04 02:45] LABS: URINE APPEARANCE CLEAR (CLEAR); URINE COLOR YELLOW (YELLOW)
[2018-11-04 02:48] LABS: URINE EPITHELIAL CELLS 0 - 2 /hpf (0-5); URINE WBC 0 - 2 /hpf (0-6)
[2018-11-04 04:27] VITALS: BP 141/72; PULSE 65; O2SAT 100
== END 2018-11-04 04:25 | disposition home or self-care (01) ==
LOC: ED 00:58
DX: N40.1 Benign prostatic hyperplasia with lower urinary tract symptoms (principal); I50.9 Heart failure, unspecified; R33.8 Other retention of urine; I10 Essential (primary) hypertension; Z95.0 Presence of cardiac pacemaker; Z87.891 Personal history of nicotine dependence